=== PATIENT | male | born 1945 | race Caucasian/White ===

== ENCOUNTER 2016-11-16 10:34 | Inpatient (IN) | payer MEDICARE ==
[~2016-11-16] VITALS: Ht 175.3 cm; Wt 88.2 kg
[2016-11-21] MEDS ORDERED: LISI40TA PO (11:53)
[2016-11-21] MEDS ORDERED: METF500T4 PO (11:53)
[2016-11-21] MEDS ORDERED: ZINC220C3 PO (11:55)
[2016-11-22] MEDS ORDERED: OMEGCAP PO (16:06)
[2016-11-22] MEDS ORDERED: OMEP20TA PO (16:06)
[2016-12-07] MEDS ORDERED: INSULIN HUMAN REGULAR 1,000 UNITS/10 ML VIAL SQ PRN (05:45)
[2016-12-07] MEDS ORDERED: POVIDONE IODINE 7.5% SCRUB 118 ML BOTTLE TOPICAL SCH (05:45)
[2016-12-07] MEDS ORDERED: LACTATED RINGER'S 1000 ML IV PRN (05:45)
[2016-12-07] MEDS ORDERED: SODIUM CHLORID 0.9% 500 ML IV PRN (05:45)
[2016-12-07] MEDS ORDERED: POVIDONE IODINE 5% (ANTISEPSIS KIT) 4 APPLICATIONS EACH NARE PRN (05:45)
[2016-12-07] MEDS ORDERED: METOPROLOL TARTRATE 25 MG TAB PO PRN (05:45)
[2016-12-07] MEDS ORDERED: ceFAZolin 2 GM PREMIX 50 ML IV SCH (05:45)
[2016-12-07] MEDS ORDERED: DEXAMETHASONE SOD PHOS 20 MG/5 ML VIAL IV PRN (05:45)
[2016-12-07] MEDS ORDERED: EXPAREL PERI-ARTICULAR INJECTION (TOTAL VOL. 60 ML) P-ARTICULR SCH ×2 (05:45)
[2016-12-07] MEDS ORDERED: CHLORHEXIDINE GLUCONATE 2 % 1 PACK (2 CLOTHS) TOPICAL PRN (05:45)
[2016-12-07] MEDS ORDERED: TRANEXAMIC ACID INJ 885 MG in SODIUM CHLORIDE 0.9% INJ 100 ML IV SCH ×2 (05:45→10:00)
[2016-12-07] MEDS ORDERED: VANCOMYCIN 1000 MG/NS 250 ML (for <70 kg) IV SCH ×2 (05:45)
[2016-12-07] MEDS ORDERED: FLUO10TA PO (06:01)
[2016-12-07] MEDS ORDERED: OCUVTAB4 PO (06:02)
[2016-12-07] MEDS ORDERED: MULTTAB23 PO (06:03)
[2016-12-07] MEDS ORDERED: VITA20004 PO (06:04)
[2016-12-07 06:05] VITALS: BP 131/83; PULSE 68; RESP 16; TEMP 98.1; O2SAT 96
[2016-12-07] MEDS ORDERED: GENTAMICIN SULFATE 80 MG/2 ML VIAL ONE (06:16)
--- NOTE | 2016-12-07 06:38 | HHI.DCPOC ---
Discharge Care Plan Diagnosis: (1) Osteoarthritis of left hip (2) Status post total hip replacement, left Your Health Problems Are: Difficulty with ADL Goals to Promote Your Health * To prevent worsening of your condition and complications * To maintain your health at the optimal level Directions to Meet Your Goals Take your medications as prescribed Follow your dietary instruction Follow activity as directed Keep your appointments as scheduled Take your immunizations and boosters as scheduled If your symptoms worsen call your PCP, if no PCP go to Urgent Care Center or Emergency Room Smoking is Dangerous to Your Health. Avoid second hand smoke Call the 24-hour hour crisis hotline for domestic abuse at Kris Soni Dec 07, 2016 06:38
--- NOTE | 2016-12-07 06:39 | HHI.FF ---
Face to Face Verification Diagnosis: (1) Osteoarthritis of left hip (2) Status post total hip replacement, left Physical Therapy Gait training, Transfer training, bed to chair Hip: Total hip Right LE Weight Bearing: WB as tolerated Right LE Range of Motion: Active ROM Nursing Nursing: Jackelyn teaching, Dressing changes Dressing Changes: Daily dressing change I have seen patient Augustus Erazo on 12/07/16. My clinical findings support the need for the requested home health care services because: Limited ability to care for self High risk of falls I certify that my clinical findings support that this patient is homebound because: Post-op weakness Unsteady gait/balance Kris Soni Dec 07, 2016 06:39
[2016-12-07] MEDS ORDERED: MIDAZOLAM HCL 2 MG/2 ML VIAL ONE (06:49)
[2016-12-07] MEDS ORDERED: ACETAMINOPHEN 1000 MG/100 ML VIAL IV ONE (06:49)
[2016-12-07] MEDS ORDERED: fentaNYL CITRATE 250 MCG/5 ML AMP ONE (06:50)
[2016-12-07] MEDS ORDERED: FAMOTIDINE 20 MG/2 ML VIAL ONE (06:50)
[2016-12-07] MEDS ORDERED: COMMODE 3-IN-11 MIS (06:54)
[2016-12-07] MEDS ORDERED: WALKER WHEELS/F1 MIS (06:54)
--- NOTE | 2016-12-07 08:39 | PD.OP ---
cc: Federico Zamarripa MD Operative Report Date of Surgery: Dec 07, 2016 Preoperative Diagnosis: Left hip severe osteoarthritis Postoperative Diagnosis: Same Procedure: Left total hip arthroplasty Anesthesia: Gen. Surgeon: Federico Zamarripa Rn Cvor(s): ALEXA Owens The surgical procedure was assisted by my Advanced Registered Nurse Practitioner. My COUNSELOR AID presence was necessary throughout this case for the manipulation and positioning of the surgical extremity. My COUNSELOR AID was assisting me throughout the duration of this procedure. The skill set of an Advance Registered Nurse Practitioner was medically necessary to complete this procedure. During the surgical case, the surgical forceps fabricator was working at the back table and the Advance Registered Nurse Practitioner was directly assisting me. Operation and Findings: IMPLANT DESCRIPTION: 1. [place] Gription Cup, acetabular size 54. 2. [place] AltrX polyethylene, neutral. 4. [place] femoral stem size 12, no collar, standard offset. 5. Femoral head/neck metal, 36, +5. ESTIMATED BLOOD LOSS: 300 cc. JUSTIFICATION FOR PROCEDURE: The patient has end-stage osteoarthritis to the hip. There is an attached conservative measures pathway form in the chart that describes the nonoperative measures that were undertaken prior to consideration of surgical management. The patient understood the risks and benefits of surgical management. See my office notes for further details. PROCEDURE: The patient was brought back to the operative theatre. Adequate anesthesia was obtained. The patient received intravenous vancomycin and Ancef. The patient was carefully placed on the operative table. The lower extremity was prepped and draped in the usual sterile fashion. Fluoroscopic images were obtained. We made a standard anterior incision over the hip. We dissected through the TFL fascia, exposing the anterior capsule. Arthrotomy was performed in a T-shaped fashion. The capsule was tagged with a #2 FiberWire. End-stage arthritis was identified. Osteotomy was performed through the femoral neck exposing the acetabulum. Remnants of the labrum were resected and osteophytes were removed. We sequentially reamed the acetabulum. We trialed the hip and placed the final cup into position. This was done under fluoroscopic guidance to obtain the appropriate inclination and anteversion. A manhole cover was placed into the acetabular component. We then placed the final polyethylene into position and confirmed that it was well seated. Capsular attachments on the calcar and the inner aspect of the greater trochanter were resected. On the proximal aspect of the femur we used a rongeur , box osteotome, canal finder, sequential broaches and lateralizing rasp. We calcar planed the proximal femur. Then thoroughly irrigated the wound. We trialed the hip with the appropriate size stem. We placed the final stem in to position and trialed again. The hip was stable while it was externally rotated 70 degrees when the leg was lowered to the floor. The final head was applied, and final fluoroscopic images were obtained. The wound was thoroughly irrigated again. Interarticular injection of liposomal bupivacaine was given. The capsule was closed with #2 FiberWire and #1 Vicryl. The deep fascia was closed with a #2 Stratafix, followed by 2-0 Vicryl in the skin and víctor. Postop plan is to weight-bear as tolerated. DVT prophylaxis will be performed with Joseline, JESUS perez, early mobilization, and Lovenox followed by aspirin. Federico Zamarripa MD Dec 07, 2016 08:39
[2016-12-07] MEDS ORDERED: ENOX40P SQ (08:40)
[2016-12-07] MEDS ORDERED: ASPI325T PO (08:40)
[2016-12-07] MEDS ORDERED: NORC5TAB PO (08:40)
[2016-12-07] MEDS ORDERED: diphenhydrAMINE HCL 50 MG/ML VIAL IV PRN (08:45)
[2016-12-07] MEDS ORDERED: BISACODYL 10 MG SUPP RECTAL PRN (08:45)
[2016-12-07] MEDS ORDERED: MAGNESIUM HYDROXIDE SUSP 30 ML CUP PO PRN (08:45)
[2016-12-07] MEDS ORDERED: SODIUM CHLORIDE 0.9% FLUSH 5 ML FLUSH IVF PRN (08:45)
[2016-12-07] MEDS ORDERED: MORPHINE SULFATE 4 MG/ML INJ IV PUSH PRN (08:45)
[2016-12-07] MEDS ORDERED: ZOLPIDEM TARTRATE 5 MG TAB PO PRN (08:45)
[2016-12-07] MEDS ORDERED: NALOXONE HCL 0.4 MG/ML AMP IV PRN (08:45)
[2016-12-07] MEDS ORDERED: Post-op Orders (for Pharmacy) MISC XX ONE (08:45)
[2016-12-07] MEDS ORDERED: ALUMINUM/MAGNESIUM/SIMETH 30 ML CUP PO PRN (08:45)
[2016-12-07] MEDS ORDERED: ONDANSETRON HCL 4 MG/2 ML VIAL IVP PRN (08:45)
[2016-12-07] MEDS: FLUoxetine HCL 10 MG CAP PO SCH (09:00)
[2016-12-07] MEDS ORDERED: DO NOT ADM ANY ANTICOAGULANT DRUGS PRN (09:03)
--- NOTE | 2016-12-07 09:06 | RADRPT ---
EXAM DATE/TIME: 12/07/2016 07:13 [facility] COMPARISON: No previous studies available for comparison. INDICATIONS : Left total hip replacement. MEDICAL HISTORY : None. SURGICAL HISTORY : None. ENCOUNTER: Initial ACUITY: 1 day PAIN SCORE: Non-responsive. LOCATION: Left Hip. FINDINGS: Total hip arthroplasty is in place. The femoral and acetabular components appear intact. There are no signs of loosening or fracture. CONCLUSION: Intact total hip prosthesis for jeremy. Kameron Tamayo MD on December 07, 2016 at 8:54 Board Certified Radiologist. This report was verified electronically.
[2016-12-07] MEDS ORDERED: *morphine SULFATE 8 MG/ML PERIprocedure ONLY ONE ×3 (09:10→09:45)
[2016-12-07] MEDS: LISINOPRIL 20 MG TAB PO SCH (09:15)
[2016-12-07] MEDS: SODIUM CHLORIDE 0.9% FLUSH 5 ML FLUSH IVF SCH ×2 (09:30→21:00)
[2016-12-07] MEDS: SODIUM CHLOR 0.9% 1000 ML INJ 1,000 ML IV SCH ×2 (09:30→21:19)
--- NOTE | 2016-12-07 09:59 | RADRPT ---
EXAM DATE/TIME: 12/07/2016 09:05 [facility] COMPARISON: HIP LEFT AP ONLY WO AP PELVIS, December 07, 2016, 7:13. INDICATIONS : Post op left total hip replacement. MEDICAL HISTORY : None. SURGICAL HISTORY : None. ENCOUNTER: Subsequent ACUITY: 1 day PAIN SCORE: Non-responsive. LOCATION: Left hip FINDINGS: 3 views of the pelvis and left hip reveal a total hip arthroplasty on the left. This is in good posit ion. No fracture or dislocation. Surgical víctor overlie the hip. There is soft tissue swelling note d. Advanced osteoarthritis is seen involving the right hip. This includes subchondral geode formation and prominent osteophyte production. CONCLUSION: Total hip prosthesis on the left in good position. Advanced osteoarthritis involving the right hip. Shyam Pillai Jr., MD on December 07, 2016 at 9:56 Board Certified Radiologist. This report was verified electronically.
[2016-12-07] MEDS ORDERED: *HYDROmorphone PF 1 MG VIAL PERIprocedural Use ONLY ONE (10:22)
[2016-12-07] MEDS: metFORMIN HCL 500 MG TAB PO SCH (11:00)
[2016-12-07] MEDS ORDERED: NEOSTIGMINE 3 MG/3 ML SYR IV ONE (12:00)
[2016-12-07] MEDS ORDERED: PROPOFOL 200 MG/20 ML AMP IV ONE (12:00)
[2016-12-07] MEDS ORDERED: ONDANSETRON HCL 4 MG/2 ML VIAL IV PUSH ONE (12:00)
[2016-12-07] MEDS ORDERED: LACTATED RINGER'S 1000 ML INJ 1,000 ML IV ONE (12:00)
[2016-12-07 13:40] VITALS: O2SAT 97
[2016-12-07] MEDS: TAMSULOSIN HCL 0.4 MG CAP PO SCH (15:05)
[2016-12-07 16:00] VITALS: BP 115/82; PULSE 92; RESP 18; TEMP 96.6; O2SAT 99
[2016-12-07 17:09] LABS: BLOOD, URINE NEG (NEG); COMMENT (UR) CULT NOT INDICATED; CULTURE IF INDICATED CULT NOT INDICATED; GLUCOSE,URINE NEG (NEG); HYALINE CAST, URINE 1 /lpf (RARE); KETONE, URINE NEG (NEG); MUCUS URINE FEW /lpf (OCC); NITRITE,URINE NEG (NEG); PH, URINE 5.5 (5.0-8.5); SQUAMOUS EPITHELIAL CELL URINE <1 /hpf (0-5); URINE COLOR YELLOW (YELLW/STRAW)
--- NOTE | 2016-12-07 18:05 | PD.CONS ---
[facility] By Primary Care Physician Paul Goncalves MD Diagnoses: History of Present Illness This is a very pleasant 71 year-old male . The patient has problems with the left hip for a number of years. This problem has been resistant to conservative management in terms of both function and pain control. The patient had left total hip replacement earlier today. The patient was seen in the postoperatively recovery unit today by the undersigned. The patient is alert and oriented and denies any complaints . he was seen in the presence of his nurse . His pain is reasonably well controlled. No nausea or trouble breathing. Review of Systems Other 10 systems reviewed and otherwise negative Past Family Social History Allergies: Coded Allergies: No Known Allergies (Unverified , 12/07/16) Physical Exam Vital Signs Vital Signs Date Time Temp Pulse Resp B/P Pulse Ox O2 Delivery O2 Flow Rate FiO2 12/07/16 13:40 97 21 12/07/16 12:00 76 16 120/69 96 Nasal Cannula 2 12/07/16 11:00 92 16 120/73 96 Nasal Cannula 2 12/07/16 10:30 88 16 129/71 97 Nasal Cannula 2 12/07/16 10:00 72 16 125/68 97 Nasal Cannula 2 12/07/16 09:45 94 16 134/76 97 Nasal Cannula 2 12/07/16 09:30 90 16 113/63 97 Nasal Cannula 2 12/07/16 09:15 66 16 129/71 97 Nasal Cannula 2 12/07/16 09:02 97.3 88 16 153/83 98 Nasal Cannula 2 12/07/16 06:05 98.1 68 16 131/83 96 Physical Exam GENERAL: This is a well-nourished, well-developed patient, in no apparent distress. SKIN: No rashes, ecchymoses or lesions. Cool and dry. HEAD: Atraumatic. Normocephalic. No temporal or scalp tenderness. EYES: Pupils equal round and reactive. Extraocular motions intact. No scleral icterus. No injection or drainage. ENT: Nose without bleeding, purulent drainage or septal hematoma. Throat without erythema, tonsillar hypertrophy or exudate. Uvula midline. Airway patent. NECK: Trachea midline. No JVD or lymphadenopathy. Supple, nontender, no meningeal signs. CARDIOVASCULAR: Regular rate and rhythm without murmurs, gallops, or rubs. RESPIRATORY: Clear to auscultation. Breath sounds equal bilaterally. No wheezes , rales, or rhonchi. GASTROINTESTINAL: Abdomen soft, non-tender, nondistended. No hepato-splenomegaly , or palpable masses. No guarding. MUSCULOSKELETAL: Left lower extremity in clean dry dressings . NEUROLOGICAL: Awake and alert. Cranial nerves II through XII intact. Normal speech. Laboratory Laboratory Tests Test 12/07/16 12/07/16 06:06 16:20 Blood Type AB POSITIVE Antibody Screen NEGATIVE Blood Bank Comment Urine Color YELLOW Urine Turbidity CLEAR Urine pH 5.5 Urine Specific [place] 1.019 Urine Protein NEG Urine Glucose (UA) NEG Urine Ketones NEG Urine Occult Blood NEG Urine Nitrite NEG Urine Bilirubin NEG Urine Urobilinogen LESS THAN 2.0 Urine Leukocyte Esterase NEG Urine RBC 1 Urine WBC 1 Urine Squamous Epithelial <1 Cells Urine Hyaline Casts 1 Urine Mucus FEW Microscopic Urinalysis Comment CULT NOT INDICATED A/P Assessment and Plan Assessment End-stage left hip osteoarthritis Status post left total hip arthroplasty on 12/07/16 History of diabetes, hypertension, reflux disease Recent negative cardiac stress test by Management Routine post hip replacement protocol Pain control DVT prophylaxis Physical therapy Bowel regimen Sinus scale of insulin Accu-Cheks before meals and at bedtime Wound management per orthopedics Discussed with patient Discussed with nurse Thank you for allowing us to participate in the care of this gentleman We'll be following him along with you on daily basis while hospitalized 35 minutes Barbie Spencer MD Dec 07, 2016 18:05
[2016-12-07 19:24] VITALS: BP 126/69; PULSE 76; RESP 18; TEMP 96.5; O2SAT 98
[2016-12-07] MEDS: ACETAMINOPHEN/HYDROcodone 325 MG/5 MG TAB PO PRN (21:15)
[2016-12-07 23:17] VITALS: BP 107/61; PULSE 93; RESP 18; TEMP 98; O2SAT 95
[2016-12-08 03:26] VITALS: BP 113/68; PULSE 98; RESP 19; TEMP 98.8; O2SAT 94
[2016-12-08] MEDS: SODIUM CHLOR 0.9% 1000 ML INJ 1,000 ML IV SCH ×2 (04:36→14:36)
[2016-12-08] MEDS: ACETAMINOPHEN/HYDROcodone 325 MG/5 MG TAB PO PRN ×3 (06:08→21:18)
--- NOTE | 2016-12-08 06:56 | MB ---
cc: WARD DOAN MD DATE OF CONSULTATION 12/07/2016 REASON FOR CONSULTATION Medical management consult HISTORY OF PRESENT ILLNESS This is a 71-year-old white male who has just undergone a left total hip arthroplasty. He is currently in his room postop. Significant other is at his side. The patient is alert, oriented, up in the restroom with a walker and slightly restless having some urinary retention as well as urinary spasms. The patient does have a history of BPH that has been benign up to this point. He is voiding small amounts 2-300 x3, but continues to feel the constant urge to void. The patient was just placed on Flomax and we will monitor his urine output as well as bladder scan him until he is having no further difficulty with urinary retention, otherwise the patient is denying any chest pain, no shortness of breath. He is alert, oriented and cooperative, mildly anxious over his urinary retention. MEDICAL HISTORY 1. Degenerative disk disease 2. Depression 3. Diabetes type 2 with oral hypoglycemics 4. Hyperlipidemia 5. Hypertension 6. Former smoker. 7. Occasional alcohol intake. 8. Pyloric stenosis 9. BPH 10. Reflux GERD which is not symptomatic. SURGICAL HISTORY 1. Appendectomy ALLERGIES No known. MEDICATIONS REPORTED 1. Lisinopril 2. Lovenox 3. Prozac 4. Metformin 5. Multivitamins 6. Aspirin 7. Hydrocodone 8. Omeprazole 9. Vitamin B12 SOCIAL HISTORY The patient is and has a significant other that he lives with for the past 23 years. He does have a history of smoking in his younger years, but has not smoked in 40 years. Occasional alcohol consumption. No illicit drugs. REVIEW OF SYSTEMS Noted in the HPI, otherwise negative. The patient did have a bowel movement times two yesterday. PHYSICAL EXAM VITAL SIGNS: Temperature is 97.3, pulse 76, high noted 92, respirations 16, blood pressure 120/69, O2 sat 96 currently on 2 liters nasal cannula and/or room air. GENERAL: This is a slim, but well-nourished elderly white male who looks to be his stated age. He is answering questions appropriately. HEENT: Atraumatic, normocephalic. PERRLA at 2. Mucous membranes are moist. NECK: Supple. HEART: Sounds S1-S2, no murmurs, rubs or gallops. He has no edema. Pulses are intact. LUNGS: Essentially clear anteriorly and posteriorly with no wheezes, rales or rhonchi. ABDOMEN: Soft, nontender, nondistended. Active bowel sounds. : Clear yellow urine. Voiding multiple times anywhere from 100-300 cc x3 so far. Positive for bladder spasms MUSCULOSKELETAL: Moving his extremities with purpose and on command. Equal hand animal technician. No obvious deformities. Dressing right hip clean, dry and intact. NEUROLOGIC: Alert, oriented, answers questions appropriately. Tongue is midline. Speech is clear. PSYCHIATRIC: Appropriate mood and affect. UA is pending. ASSESSMENT/PLAN 1. Bilateral hip severe osteoarthritis 2. Degenerative disk disease, the patient is status post left total hip arthroplasty. 3. Urinary retention, rule out UTI. 4. Diabetes type 2 5. Hypertension 6. History of benign BPH 7. Urinary retention PLAN 1. Our plan is to monitor his medical management with special attention currently to his urinary retention. 2. We will monitor Accu-Chek's a.c. and h.s. with sliding scale. 3. ADA diet 4. O2 as needed 5. Trapeze set up for his mobility. 6. We have added Flomax and check a urine specimen to rule out any type of UTI. The patient has not had any problems with urinary retention before, but does have a history of benign BPH. This could be a postop complication. We will continue to monitor and place a Valente catheter only if needed. 7. Pain management and postop care per Ortho. 8. DVT prophylaxis with Lovenox. 9. PUD prophylaxis with Protonix. 10. We will order labs for in the morning and continue to monitor. Dictated by ALEXA Kearney MD NEERAJ Holland/TERESE /4:52 PM /6:36 AM
[2016-12-08] MEDS ORDERED: DEXAMETHASONE SOD PHOS 20 MG/5 ML VIAL IV ONE (07:45)
[2016-12-08 08:00] VITALS: BP 115/71; PULSE 98; RESP 18; TEMP 98.3; O2SAT 96
[2016-12-08] MEDS: TAMSULOSIN HCL 0.4 MG CAP PO SCH ×2 (08:23→21:24)
[2016-12-08] MEDS: LISINOPRIL 20 MG TAB PO SCH (08:24)
[2016-12-08] MEDS: PANTOPRAZOLE SOD 20 MG DELAYED RELEASE TAB PO SCH (08:24)
[2016-12-08] MEDS: ENOXAPARIN SODIUM 40 MG/0.4 ML SYRINGE SQ SCH (08:24)
[2016-12-08] MEDS: FLUoxetine HCL 10 MG CAP PO SCH (08:24)
[2016-12-08] MEDS: metFORMIN HCL 500 MG TAB PO SCH (08:25)
[2016-12-08] MEDS: PSYLLIUM FIBER SF/GF 6 GM POWD PKT PO SCH (08:26)
[2016-12-08] MEDS: SODIUM CHLORIDE 0.9% FLUSH 5 ML FLUSH IVF SCH ×2 (08:26→21:00)
[2016-12-08 10:43] LABS: HEMATOCRIT 33.3 % (39.0-51.0); MEAN CELL VOLUME 86.7 FL (80.0-100.0); MEAN CORPUSCULAR HEMOGLOBIN 28.8 PG (27.0-34.0); MEAN CORPUSCULAR HGB CONC 33.2 % (32.0-36.0); PLATELET COUNT 226 TH/MM3 (150-450); RED BLOOD COUNT 3.83 MIL/MM3 (4.50-5.90); RED CELL DISTRIBUTION WIDTH 13.8 % (11.6-17.2); REVIEW FLAG FINAL; WHITE BLOOD COUNT 10.5 TH/MM3 (4.0-11.0)
[2016-12-08 11:06] LABS: BICARBONATE 24.9 MEQ/L (21.0-32.0); MAGNESIUM 1.8 MG/DL (1.5-2.5); POTASSIUM 3.9 MEQ/L (3.5-5.1)
--- NOTE | 2016-12-08 11:59 | PD.ORT.PN ---
Subjective Post Op Day #: 1 Subjective Remarks The patient is resting in bed with c/o moderate left hip pain. Patient is ambulatory and voiding. Objective Vitals Vital Signs Date Time Temp Pulse Resp B/P Pulse Ox O2 Delivery O2 Flow Rate FiO2 12/08/16 08:00 98.3 98 18 115/71 96 12/08/16 03:26 98.8 98 19 113/68 94 12/07/16 23:17 98.0 93 18 107/61 95 12/07/16 22:15 18 12/07/16 19:24 96.5 76 18 126/69 98 12/07/16 16:00 96.6 92 18 115/82 99 12/07/16 13:40 97 21 12/07/16 12:00 76 16 120/69 96 Nasal Cannula 2 I/O 12/07/16 12/07/16 12/07/16 12/08/16 12/08/16 12/08/16 07:00 15:00 23:00 07:00 15:00 23:00 Intake Total 150 ml 720 ml 1156 ml Output Total 100 ml 1200 ml 350 ml Balance 50 ml -480 ml 806 ml Intake Oral 720 ml 480 ml IV Total 150 ml 676 ml Output Urine Total 100 ml 1200 ml 350 ml Bladder Scan Volume Amount 600 ml 468 ml # Bowel Movements 0 0 Result Diagram: 12/08/1692112/08/16921 Procedures Left ELPIDIO Objective Remarks The patient's dressing is changed with scant serosanguineous drainage. Incision is well approximated with surgical clips intact. No redness or s/s of infection. EHL/TA/G intact. 2+ pedal pulse. Calf is soft and nontender. + SILT. Assessment & Plan Ortho Post Op Day #: 1 Problem List: Assessment and Plan POD #1: Left ELPIDIO 1. WBAT LLE 2. Lovenox followed by ASA for DVT prophylaxis 3. Ice to the left hip PRN 4. Anticipatory discharge to SNF on Monday. Kris Soni Dec 08, 2016 11:59
[2016-12-08 12:00] VITALS: BP 114/67; PULSE 80; RESP 18; TEMP 98.6; O2SAT 95
[2016-12-08 15:42] VITALS: O2SAT 95
[2016-12-08 16:00] VITALS: BP 118/68; PULSE 87; RESP 18; TEMP 96.8; O2SAT 97
--- NOTE | 2016-12-08 18:35 | HHI.PR ---
Subjective Interval History alert, oriented, complaining of frequent urination, doing his physical therapy with reasonable pain control Complaining of some stiffness in his legs, eating well Review of Systems Constitutional Constitutional Remarks Mild left hip pain, frequent urination, 10 systems reviewed otherwise negative Vitals/Results Intake & Output 12/07/16 12/07/16 12/08/16 15:00 23:00 07:00 Intake Total 150 ml 720 ml 1156 ml Output Total 100 ml 1200 ml 350 ml Balance 50 ml -480 ml 806 ml Intake Oral 720 ml 480 ml IV Total 150 ml 676 ml Output Urine Total 100 ml 1200 ml 350 ml Bladder Scan Volume Amount 600 ml 468 ml # Bowel Movements 0 0 Vital Signs Vital Signs Date Time Temp Pulse Resp B/P Pulse Ox O2 Delivery O2 Flow Rate FiO2 12/08/16 16:00 96.8 87 18 118/68 97 12/08/16 15:42 95 21 12/08/16 12:00 98.6 80 18 114/67 95 12/08/16 08:00 98.3 98 18 115/71 96 12/08/16 03:26 98.8 98 19 113/68 94 12/07/16 23:17 98.0 93 18 107/61 95 12/07/16 22:15 18 12/07/16 19:24 96.5 76 18 126/69 98 CBC/BMP: 12/08/16 0922 12/08/16 0922 Lab Results Laboratory Tests Test 12/08/16 09:22 White Blood Count 10.5 TH/MM3 Red Blood Count 3.83 MIL/MM3 Hemoglobin 11.1 GM/DL Hematocrit 33.3 % Mean Corpuscular Volume 86.7 FL Mean Corpuscular Hemoglobin 28.8 PG Mean Corpuscular Hemoglobin 33.2 % Concent Red Cell Distribution Width 13.8 % Platelet Count 226 TH/MM3 Mean Platelet Volume 8.3 FL Sodium Level 137 MEQ/L Potassium Level 3.9 MEQ/L Chloride Level 104 MEQ/L Carbon Dioxide Level 24.9 MEQ/L Anion Gap 8 MEQ/L Blood Urea Nitrogen 21 MG/DL Creatinine 1.14 MG/DL Estimat Glomerular Filtration 64 ML/MIN Rate Random Glucose 210 MG/DL Calcium Level 8.8 MG/DL Phosphorus Level 2.4 MG/DL Magnesium Level 1.8 MG/DL Physical Exam General General Appearance: Well Developed, Anxious Eyes Eye Exam: Pupils Reactive Ears & Nose Ears & Nose Exam: Nasal Mucosa [place] Throat Throat Exam: Oral Mucosa [place] & Moist Neck Neck Exam: Trachea Midline Pulmonary Resp Exam: Breath Sounds Equal Cardiology CV Exam: Normal Sinus Rhythm, Good Perfusion Gastrointestinal/Abdomen GI Exam: Non-Tender, Bowel Sounds Present Musculoskeletal MS Exam: Normal Tone MS Remarks Left lower extremity in clean dry dressing, Integumentary Skin Exam: Warm, Dry Extremeties Extremities Exam: Pedal Pulses Palpable Neurologic Neuro Exam: Awake, Oriented, Speech Clear Psychiatric Psych Exam: Appropriate Responses VTE Prophylaxis VTE Prophylaxis Meds: Lovenox Assessment/Plan Assessment/Plan Assessment Frequent urination End-stage left hip osteoarthritis Status post left total hip arthroplasty on 12/07/16 History of diabetes, hypertension, reflux disease Recent negative cardiac stress test by Management Urinalysis Rule out UTI Flomax Routine post hip replacement protocol Pain control DVT prophylaxis Physical therapy Bowel regimen Sinus scale of insulin Follow hemoglobin, keep above 8 Accu-Cheks before meals and at bedtime Wound management per orthopedics Discussed with patient Discussed with nurse Thank you for allowing us to participate in the care of this gentleman We'll be following him along with you on daily basis while hospitalized 35 minutes Barbie Spencer MD Dec 08, 2016 18:35
[2016-12-08 20:15] VITALS: BP 118/69; PULSE 95; RESP 18; TEMP 97.7; O2SAT 96
[2016-12-08] MEDS: DOCUSATE SODIUM 100 MG CAP PO SCH (21:17)
[2016-12-08] MEDS: MULTIVITAMINS/MINERALS THERAPEUTIC TAB PO SCH (21:17)
[2016-12-09 00:10] VITALS: BP 111/71; PULSE 80; RESP 18; TEMP 99; O2SAT 96
[2016-12-09] MEDS: SODIUM CHLOR 0.9% 1000 ML INJ 1,000 ML IV SCH ×4 (00:36→20:27)
[2016-12-09 04:11] VITALS: BP 132/73; PULSE 83; RESP 18; TEMP 97.4; O2SAT 97
[2016-12-09 07:31] LABS: HEMATOCRIT 31.9 % (39.0-51.0); MEAN CORPUSCULAR HEMOGLOBIN 28.8 PG (27.0-34.0); MEAN CORPUSCULAR HGB CONC 33.5 % (32.0-36.0); PLATELET COUNT 217 TH/MM3 (150-450); RED CELL DISTRIBUTION WIDTH 13.8 % (11.6-17.2); REVIEW FLAG FINAL; WHITE BLOOD COUNT 10.6 TH/MM3 (4.0-11.0)
[2016-12-09 07:46] LABS: MAGNESIUM 2.1 MG/DL (1.5-2.5); POTASSIUM 4.1 MEQ/L (3.5-5.1)
[2016-12-09 08:00] VITALS: BP 122/66; PULSE 79; RESP 18; TEMP 98; O2SAT 98
[2016-12-09] MEDS: FLUoxetine HCL 10 MG CAP PO SCH (08:09)
[2016-12-09] MEDS: ENOXAPARIN SODIUM 40 MG/0.4 ML SYRINGE SQ SCH (08:09)
[2016-12-09] MEDS: PANTOPRAZOLE SOD 20 MG DELAYED RELEASE TAB PO SCH (08:10)
[2016-12-09] MEDS: metFORMIN HCL 500 MG TAB PO SCH (08:10)
[2016-12-09] MEDS: LISINOPRIL 20 MG TAB PO SCH (08:11)
[2016-12-09] MEDS: DOCUSATE SODIUM 100 MG CAP PO SCH ×2 (08:12→20:31)
[2016-12-09] MEDS: ACETAMINOPHEN/HYDROcodone 325 MG/5 MG TAB PO PRN ×2 (08:12→17:19)
[2016-12-09] MEDS: MULTIVITAMINS/MINERALS THERAPEUTIC TAB PO SCH ×2 (08:13→20:31)
[2016-12-09] MEDS: PSYLLIUM FIBER SF/GF 6 GM POWD PKT PO SCH (08:13)
[2016-12-09] MEDS: TAMSULOSIN HCL 0.4 MG CAP PO SCH ×2 (08:13→20:31)
[2016-12-09] MEDS: SODIUM CHLORIDE 0.9% FLUSH 5 ML FLUSH IVF SCH ×2 (09:00→20:32)
--- NOTE | 2016-12-09 11:23 | HHI.PR ---
Subjective Interval History Alert, oriented, complaining of dysuria, very small amounts of frequent urine with some burning, no fever chills or diaphoresis, Review of Systems Constitutional Constitutional Remarks Mild left lower extremity stiffness, frequent urination, 10 systems reviewed otherwise negative Vitals/Results Intake & Output 12/08/16 12/08/16 12/09/16 15:00 23:00 07:00 Intake Total 1200 ml 240 ml 240 ml Output Total 400 ml Balance 1200 ml 240 ml -160 ml Intake Oral 1200 ml 240 ml 240 ml Output Urine Total 400 ml # Voids 4 3 4 # Bowel Movements 0 0 0 Vital Signs Vital Signs Date Time Temp Pulse Resp B/P Pulse Ox O2 Delivery O2 Flow Rate FiO2 12/09/16 10:28 16 12/09/16 08:00 98.0 79 18 122/66 98 12/09/16 04:11 97.4 83 18 132/73 97 12/09/16 00:10 99.0 80 18 111/71 96 12/08/16 20:15 97.7 95 18 118/69 96 12/08/16 16:00 96.8 87 18 118/68 97 12/08/16 15:42 95 21 12/08/16 12:00 98.6 80 18 114/67 95 CBC/BMP: 12/09/16 0635 12/09/16 0635 Lab Results Laboratory Tests Test 12/09/16 06:35 White Blood Count 10.6 TH/MM3 Red Blood Count 3.70 MIL/MM3 Hemoglobin 10.7 GM/DL Hematocrit 31.9 % Mean Corpuscular Volume 86.0 FL Mean Corpuscular Hemoglobin 28.8 PG Mean Corpuscular Hemoglobin 33.5 % Concent Red Cell Distribution Width 13.8 % Platelet Count 217 TH/MM3 Mean Platelet Volume 8.0 FL Sodium Level 142 MEQ/L Potassium Level 4.1 MEQ/L Chloride Level 106 MEQ/L Carbon Dioxide Level 29.0 MEQ/L Anion Gap 7 MEQ/L Blood Urea Nitrogen 21 MG/DL Creatinine 0.97 MG/DL Estimat Glomerular Filtration 77 ML/MIN Rate Random Glucose 124 MG/DL Calcium Level 8.8 MG/DL Phosphorus Level 2.7 MG/DL Magnesium Level 2.1 MG/DL Physical Exam General General Appearance: Well Developed, Anxious Eyes Eye Exam: Pupils Reactive Ears & Nose Ears & Nose Exam: Nasal Mucosa [place] Throat Throat Exam: Oral Mucosa [place] & Moist Neck Neck Exam: Trachea Midline Pulmonary Resp Exam: Breath Sounds Equal Cardiology CV Exam: Normal Sinus Rhythm, Good Perfusion Gastrointestinal/Abdomen GI Exam: Non-Tender, Bowel Sounds Present Musculoskeletal MS Exam: Normal Tone MS Remarks Left lower extremity in clean dry dressing, Integumentary Skin Exam: Warm, Dry Extremeties Extremities Exam: Pedal Pulses Palpable Neurologic Neuro Exam: Awake, Oriented, Speech Clear Psychiatric Psych Exam: Appropriate Responses VTE Prophylaxis VTE Prophylaxis Meds: Lovenox Assessment/Plan Assessment/Plan Assessment Frequent urination Dysuria End-stage left hip osteoarthritis Status post left total hip arthroplasty on 12/07/16 History of diabetes, hypertension, reflux disease Recent negative cardiac stress test by Management Follow Urinalysis Rule out UTI Flomax, twice a day Routine post hip replacement protocol Pain control DVT prophylaxis Physical therapy Bowel regimen Sinus scale of insulin Follow hemoglobin, keep above 8 Accu-Cheks before meals and at bedtime Wound management per orthopedics Discussed with patient Discussed with nurse Thank you for allowing us to participate in the care of this gentleman We'll be following him along with you on daily basis while hospitalized 35 minutes Barbie Spencer MD Dec 09, 2016 11:23
[2016-12-09 12:00] VITALS: BP 109/67; PULSE 77; RESP 18; TEMP 97.6; O2SAT 98
[2016-12-09 14:15] LABS: BLOOD, URINE NEG (NEG); COMMENT (UR) CULT NOT INDICATED; CULTURE IF INDICATED CULT NOT INDICATED; GLUCOSE,URINE NEG (NEG); HYALINE CAST, URINE 1 /lpf (RARE); KETONE, URINE NEG (NEG); MUCUS URINE FEW /lpf (OCC); NITRITE,URINE NEG (NEG); PH, URINE 5.5 (5.0-8.5); SQUAMOUS EPITHELIAL CELL URINE <1 /hpf (0-5); URINE COLOR YELLOW (YELLW/STRAW)
[2016-12-09 16:00] VITALS: BP 110/69; PULSE 83; RESP 18; TEMP 98.2; O2SAT 96
--- NOTE | 2016-12-09 16:13 | PD.ORT.PN ---
Subjective Post Op Day #: 2 Subjective Remarks The patient is OOB ambulating from bathroom. Patient states his pain is better today. Objective Vitals Vital Signs Date Time Temp Pulse Resp B/P Pulse Ox O2 Delivery O2 Flow Rate FiO2 12/09/16 12:00 97.6 77 18 109/67 98 12/09/16 10:28 16 12/09/16 08:00 98.0 79 18 122/66 98 12/09/16 04:11 97.4 83 18 132/73 97 12/09/16 00:10 99.0 80 18 111/71 96 12/08/16 20:15 97.7 95 18 118/69 96 I/O 12/08/16 12/08/16 12/08/16 12/09/16 12/09/16 12/09/16 06:59 14:59 22:59 06:59 14:59 22:59 Intake Total 1156 ml 1200 ml 240 ml 240 ml Output Total 350 ml 400 ml Balance 806 ml 1200 ml 240 ml -160 ml Intake Oral 480 ml 1200 ml 240 ml 240 ml IV Total 676 ml Output Urine Total 350 ml 400 ml Bladder Scan Volume Amount 468 ml # Voids 4 3 4 # Bowel Movements 0 0 0 0 Result Diagram: 12/09/16 0635 12/09/16 0635 Procedures Left ELPIDIO Objective Remarks The patient's dressing is C/D/I. EHL/TA/G intact. 2+ pedal pulse. Calf is soft and nontender. + SILT. Assessment & Plan Ortho Post Op Day #: 2 Problem List: Assessment and Plan POD #2: Left ELPIDIO 1. WBAT LLE 2. Lovenox followed by ASA for DVT prophylaxis 3. Ice to the left hip PRN 4. Anticipatory discharge to SNF ([facility]) on Monday. 5. Patient will f/u with Dr. Zamarripa as previously scheduled. Kris oSni Dec 09, 2016 16:13
[2016-12-09 20:20] VITALS: BP 107/65; PULSE 90; RESP 18; TEMP 98.8; O2SAT 96
[2016-12-10 00:20] VITALS: BP 101/72; PULSE 83; RESP 18; TEMP 98; O2SAT 96
[2016-12-10] MEDS: ACETAMINOPHEN/HYDROcodone 325 MG/5 MG TAB PO PRN (03:09)
[2016-12-10 06:44] LABS: HEMATOCRIT 34.7 % (39.0-51.0); MEAN CELL VOLUME 87.9 FL (80.0-100.0); MEAN CORPUSCULAR HEMOGLOBIN 29.1 PG (27.0-34.0); MEAN CORPUSCULAR HGB CONC 33.1 % (32.0-36.0); PLATELET COUNT 222 TH/MM3 (150-450); RED BLOOD COUNT 3.95 MIL/MM3 (4.50-5.90); RED CELL DISTRIBUTION WIDTH 13.6 % (11.6-17.2); REVIEW FLAG FINAL; WHITE BLOOD COUNT 8.7 TH/MM3 (4.0-11.0)
[2016-12-10 08:00] VITALS: BP 109/63; PULSE 70; RESP 16; TEMP 97.8; O2SAT 98
[2016-12-10] MEDS: SODIUM CHLORIDE 0.9% FLUSH 5 ML FLUSH IVF SCH (09:00)
[2016-12-10] MEDS: LISINOPRIL 20 MG TAB PO SCH (09:00)
[2016-12-10] MEDS: FLUoxetine HCL 10 MG CAP PO SCH (09:00)
--- NOTE | 2016-12-10 09:29 | PD.ORT.PN ---
Subjective Post Op Day #: 3 Subjective Remarks Pt sitting upright eating breakfast, already walked with PT. Has not had BM. Ready for d/c today to rehab Objective Vitals Vital Signs Date Time Temp Pulse Resp B/P Pulse Ox O2 Delivery O2 Flow Rate FiO2 12/10/16 08:00 97.8 70 16 109/63 98 12/10/16 00:20 98.0 83 18 101/72 96 12/09/16 20:20 98.8 90 18 107/65 96 12/09/16 16:00 98.2 83 18 110/69 96 12/09/16 12:00 97.6 77 18 109/67 98 12/09/16 10:28 16 I/O 12/09/16 12/09/16 12/09/16 12/10/16 12/10/16 12/10/16 07:00 15:00 23:00 07:00 15:00 23:00 Intake Total 240 ml 960 ml 360 ml 240 ml Output Total 400 ml Balance -160 ml 960 ml 360 ml 240 ml Intake Oral 240 ml 960 ml 360 ml 240 ml Output Urine Total 400 ml # Voids 4 5 1 4 # Bowel Movements 0 0 0 0 Result Diagram: 12/10/16 0616 12/09/16 0635 Imaging Last Impressions Hip and Pelvis X-Ray 12/07/16 0836 Signed Impressions: Service Date/Time: Wednesday, December 07, 2016 09:05 - CONCLUSION: Total hip prosthesis on the left in good position. Advanced osteoarthritis involving the right hip. Shyam Pillai Jr., MD Hip X-Ray 12/07/16 0000 Signed Impressions: Service Date/Time: Wednesday, December 07, 2016 07:13 - CONCLUSION: Intact total hip prosthesis for technique. K. Jesu Tamayo MD Procedures Left ELPIDIO Objective Remarks The patient's dressing is C/D/I. EHL/TA/G intact. 2+ pedal pulse. Calf is soft and nontender. + SILT. Assessment & Plan Ortho Post Op Day #: 3 Problem List: (1) Status post total hip replacement, left (2) Osteoarthritis of left hip Assessment and Plan POD #3: Left ELPIDIO 1. WBAT LLE 2. Lovenox followed by ASA for DVT prophylaxis 3. Ice to the left hip PRN 4. Clear for discharge from an orthopedic standpoint. Anticipatory discharge to SNF ([facility]) today. 5. Patient will f/u with Dr. Zamarripa as previously scheduled. 6. Senokot added for bowel regimen. Elyssa Aguilera Dec 10, 2016 09:29
[2016-12-10] MEDS: MULTIVITAMINS/MINERALS THERAPEUTIC TAB PO SCH (09:52)
[2016-12-10] MEDS: PANTOPRAZOLE SOD 20 MG DELAYED RELEASE TAB PO SCH (09:52)
[2016-12-10] MEDS: DOCUSATE SODIUM 100 MG CAP PO SCH (09:52)
[2016-12-10] MEDS: metFORMIN HCL 500 MG TAB PO SCH (09:52)
[2016-12-10] MEDS: ENOXAPARIN SODIUM 40 MG/0.4 ML SYRINGE SQ SCH (09:53)
[2016-12-10] MEDS: PSYLLIUM FIBER SF/GF 6 GM POWD PKT PO SCH (09:53)
[2016-12-10] MEDS: TAMSULOSIN HCL 0.4 MG CAP PO SCH (09:53)
[2016-12-10] MEDS ORDERED: SENNOSIDES 8.6 MG TAB PO SCH (10:00)
[2016-12-10 12:00] VITALS: BP 117/72; PULSE 87; RESP 16; TEMP 97.4; O2SAT 97
--- NOTE | 2016-12-10 18:53 | HHI.PR ---
Subjective Interval History Alert, oriented, denies complaints, waiting to be discharged, Review of Systems Constitutional Constitutional Remarks 10 systems reviewed otherwise negative Vitals/Results Intake & Output 12/09/16 12/09/16 12/10/16 15:00 23:00 07:00 Intake Total 960 ml 360 ml 240 ml Balance 960 ml 360 ml 240 ml Intake Oral 960 ml 360 ml 240 ml # Voids 5 1 4 # Bowel Movements 0 0 0 Vital Signs Vital Signs Date Time Temp Pulse Resp B/P Pulse Ox O2 Delivery O2 Flow Rate FiO2 12/10/16 12:00 97.4 87 16 117/72 97 12/10/16 08:00 97.8 70 16 109/63 98 12/10/16 00:20 98.0 83 18 101/72 96 12/09/16 20:20 98.8 90 18 107/65 96 CBC/BMP: 12/10/16 0616 12/09/16 0635 Lab Results Laboratory Tests Test 12/10/16 06:16 White Blood Count 8.7 TH/MM3 Red Blood Count 3.95 MIL/MM3 Hemoglobin 11.5 GM/DL Hematocrit 34.7 % Mean Corpuscular Volume 87.9 FL Mean Corpuscular Hemoglobin 29.1 PG Mean Corpuscular Hemoglobin 33.1 % Concent Red Cell Distribution Width 13.6 % Platelet Count 222 TH/MM3 Mean Platelet Volume 7.7 FL Physical Exam General General Appearance: Well Developed, Anxious Eyes Eye Exam: Pupils Reactive Ears & Nose Ears & Nose Exam: Nasal Mucosa [place] Throat Throat Exam: Oral Mucosa [place] & Moist Neck Neck Exam: Trachea Midline Pulmonary Resp Exam: Breath Sounds Equal Cardiology CV Exam: Normal Sinus Rhythm, Good Perfusion Gastrointestinal/Abdomen GI Exam: Non-Tender, Bowel Sounds Present Musculoskeletal MS Exam: Normal Tone MS Remarks Left lower extremity in clean dry dressing, Integumentary Skin Exam: Warm, Dry Extremeties Extremities Exam: Pedal Pulses Palpable Neurologic Neuro Exam: Awake, Oriented, Speech Clear Psychiatric Psych Exam: Appropriate Responses VTE Prophylaxis VTE Prophylaxis Meds: Lovenox Assessment/Plan Assessment/Plan Assessment Frequent urination, improved Dysuria, improved End-stage left hip osteoarthritis Status post left total hip arthroplasty on 12/07/16 History of diabetes, hypertension, reflux disease Recent negative cardiac stress test by Management Flomax, twice a day Routine post hip replacement protocol Pain control DVT prophylaxis Physical therapy Bowel regimen Wound management per orthopedics Discussed with patient Discussed with nurse Thank you for allowing us to participate in the care of this gentleman 35 minutes Barbie Spencer MD Dec 10, 2016 18:53
--- NOTE | 2016-12-10 21:29 | HHI.DS ---
Discharge Summary Admission Date Dec 07, 2016 at 05:10 Discharge Date: Dec 10, 2016 Admitting Diagnosis OA of the left hip Status post total hip replacement, left Diagnosis: (1) Status post total hip replacement, left Diagnosis: Principal (2) Osteoarthritis of left hip Diagnosis: Principal Procedures Left ELPIDIO Brief History This is a 71 year old male patient with severe OA of the left hip CBC/BMP: 12/10/16 0616 12/09/16 0635 Significant Findings Laboratory Tests Test 12/08/16 12/09/16 12/09/16 12/10/16 09:22 06:35 13:33 06:16 Red Blood Count 3.83 MIL/MM3 3.70 MIL/MM3 3.95 MIL/MM3 (4.50-5.90) (4.50-5.90) (4.50-5.90) Hemoglobin 11.1 GM/DL 10.7 GM/DL 11.5 GM/DL (13.0-17.0) (13.0-17.0) (13.0-17.0) Hematocrit 33.3 % 31.9 % 34.7 % (39.0-51.0) (39.0-51.0) (39.0-51.0) Blood Urea Nitrogen 21 MG/DL (7-18) 21 MG/DL (7-18) Estimat Glomerular Filtration 64 ML/MIN (>89) 77 ML/MIN (>89) Rate Random Glucose 210 MG/DL 124 MG/DL (74-106) (74-106) Phosphorus Level 2.4 MG/DL (2.5-4.9) Urine Mucus FEW /lpf (OCC) PE at Discharge The patient's dressing is C/D/I. EHL/TA/G intact. 2+ pedal pulse. Calf is soft and nontender. + SILT. Hospital Course The patient was admitted to the hospital for severe OA of the left hip to have a left ELPIDIO. The patient's surgery went well without complication. The patient is WBAT. The patient is on a diabetic diet. The patient was placed on Lovenox followed by ASA for DVT prophylaxis. The patient was discharged today to the [facility] and will follow up in the office as scheduled with Dr. Zamarripa. Pt Condition on Discharge: Stable Discharge Disposition: Discharge to SNF Discharge Instructions Diet Instructions: Diabetic Diet Activities You Can Perform: Weight Bearing as Martín Activities to Avoid: Strenuous Activity Follow up Referrals: Orthopedics with Federico Zamarripa MD SNF/GROUP HOME/HH with [facility] New Medications: Aspirin (Aspirin) 325 Mg Tab 325 MG PO DAILY Start Aspirin after Lovenox is completed. Prevent Blood Clot # 30 Ref 0 TAB Commode 3-in-1 (Commode 3-in-1) 1 Mis Mis 1 EA .ROUTE DIRECTED #1 Ref 0 EA Enoxaparin Inj (Lovenox Inj) 40 Mg/0.4 Ml Syr 40 MG SQ DAILY Start Aspirin after Lovenox is completed. Blood Clot Prevention # 10 Ref 0 SYRINGE Hydrocodone-Acetaminophen ([place]) 5-325 mg Tab 1-2 TAB PO Q4H PRN PAIN #60 Ref 0 TAB Walker with Front Wheels (Walker with Front Wheels) 1 Mis Mis 1 EA .ROUTE DIRECTED #1 Ref 0 EA Continued Medications: Cyanocobalamin ER (Vitamin B-12 ER) 2,000 Mcg Tab 2500 MCG PO DAILY Nutritional Supplement #1 Ref 0 BOTTLE Fluoxetine (Fluoxetine) 10 Mg Tab 10 MG PO DAILY #30 Ref 0 TAB Lisinopril (Lisinopril) 40 Mg Tab 40 MG PO DAILY Blood Pressure Management #30 Ref 0 TAB Metformin ER (Metformin ER) 500 Mg Marlin 500 MG PO DAILY With evening meal Blood Sugar Management Ref 0 TAB Multiple Vitamins W/ Minerals (Preservision Areds) 1 Tab 3 TAB PO DAILY Nutritional Supplement Ref 0 TAB Multiple Vitamins W/ Minerals (Multi For Him 50+) 1 Tab Tab 1 TAB PO DAILY Omeprazole (Omeprazole) 20 Mg Tab 20 MG PO DAILY #30 Ref 0 TAB Kris Soni Dec 10, 2016 21:29
== END 2016-12-10 14:59 | DRG 470 ==
LOC: HSDI 12-07 05:10 → EDUNIT# 12-07 07:00 → N06B 12-07 12:40
PROVIDERS: ADMIT Orthopaedic Surgery; ATTEND Orthopaedic Surgery
PROC: 0SRB02A Replacement of Left Hip Joint with Metal on Polyethylene Synthetic Substitute, Uncemented, Open Approach (ICD-10-PCS; principal; 2016-12-07 06:49)
DX: M16.12 Unilateral primary osteoarthritis, left hip (principal); E11.9 Type 2 diabetes mellitus without complications; I10 Essential (primary) hypertension; K21.9 Gastro-esophageal reflux disease without esophagitis; E78.5 Hyperlipidemia, unspecified; N40.1 Benign prostatic hyperplasia with lower urinary tract symptoms; R35.0 Frequency of micturition; R30.0 Dysuria; R33.9 Retention of urine, unspecified; Z79.84 Long term (current) use of oral hypoglycemic drugs; Z87.891 Personal history of nicotine dependence
CPT/HCPCS: 73501; 73502; 76000; 80048; 81001; 82948; 83735; 84100; 85027; 86850; 86900; 86901; 94150; C1776; C9290; J0131; J0690; J1100; J1170; J1580; J1650; J2250; J2270; J2405; J2710; J3010; J3370; J7030; J7050; J7120

== ENCOUNTER → 2016-11-21 | Outpatient (CLI) | payer MEDICARE ==
[~2016-11-21] MED LIST: ASPI325T PO; ENOX40P SQ; FLUO10TA PO; LISI40TA PO; METF500T4 PO; MULTTAB23 PO; NORC5TAB PO; OCUVTAB4 PO; OMEGCAP PO; OMEP20TA PO; VITA20004 PO; ZINC220C3 PO
[2016-11-21 12:26] LABS: APTT (PATIENT) 25.6 SEC (24.3-30.1); AUTOMATED NEUTROPHIL # 4.4 TH/MM3 (1.8-7.7); BASOPHIL # 0.1 TH/MM3 (0-0.2); EOSINOPHIL # 0.3 TH/MM3 (0-0.4); EOSINOPHIL % 4.7 % (0.0-4.0); HEMATOCRIT 42.9 % (39.0-51.0); HEMO FLAGS DIFF FINAL; INTERNATIONAL NORMALIZED RATIO 0.9 RATIO; LYMPH % 19.4 % (9.0-44.0); LYMPHOCYTE # 1.3 TH/MM3 (1.0-4.8); MEAN CORPUSCULAR HGB CONC 33.8 % (32.0-36.0); MONO % 10.8 % (0.0-8.0); NEUT % 64.1 % (16.0-70.0); PLATELET COUNT 285 TH/MM3 (150-450); PROTHROMBIN TIME - PATIENT 10.3 SEC (9.8-11.6); RED BLOOD COUNT 4.99 MIL/MM3 (4.50-5.90); RED CELL DISTRIBUTION WIDTH 13.6 % (11.6-17.2); WHITE BLOOD COUNT 6.9 TH/MM3 (4.0-11.0)
--- NOTE | 2016-11-21 12:31 | RADRPT ---
EXAM DATE/TIME: 11/21/2016 12:24 [facility] COMPARISON: No previous studies available for comparison. INDICATIONS : Evaluate for pneumonia, pneumothorax and communicable diseases. Pre-op hip surgery MEDICAL HISTORY : None. SURGICAL HISTORY : None. ENCOUNTER: Initial ACUITY: 1 day PAIN SCORE: 0/10 LOCATION: chest FINDINGS: PA and lateral views of the chest demonstrate a normal-sized cardiac silhouette. There is no effusion , consolidation, or pneumothorax. The bones and soft tissues demonstrate no acute abnormality. There are mild degenerative changes of the thoracic spine. CONCLUSION: No acute cardiopulmonary abnormality is identified. Maykel Martini MD on November 21, 2016 at 12:27 Board Certified Radiologist. This report was verified electronically.
[2016-11-21 12:41] LABS: WESTERGREN SEDIMENTATION RATE 3 mm/hr (0-20)
[2016-11-21 12:47] LABS: ANION GAP 7 MEQ/L (5-15); AST (GOT) 15 U/L (15-37); BICARBONATE 28.8 MEQ/L (21.0-32.0); BLOOD UREA NITROGEN 14 MG/DL (7-18); CHLORIDE 107 MEQ/L (98-107); GLOMERULAR FILTRATION RATE 61 ML/MIN (>89); GLUCOSE,FASTING 128 MG/DL (74-99); POTASSIUM 4.2 MEQ/L (3.5-5.1); SODIUM (NA) 143 MEQ/L (136-145)
[2016-11-21 12:50] LABS: ALKALINE PHOSPHATASE 52 U/L (45-117); ALT (GPT) 26 U/L (12-78); TOTAL BILIRUBIN ADULT 0.5 MG/DL (0.2-1.0)
[2016-11-21 13:34] LABS: BLOOD, URINE NEG (NEG); COMMENT (UR) CULT NOT INDICATED; CULTURE IF INDICATED CULT NOT INDICATED; GLUCOSE,URINE NEG (NEG); HYALINE CAST, URINE 7 /lpf (RARE); KETONE, URINE NEG (NEG); MUCUS URINE FEW /lpf (OCC); NITRITE,URINE NEG (NEG); URINE COLOR YELLOW (YELLW/STRAW)
--- NOTE | 2016-11-22 16:27 | EKG ---
Date Performed: 11/21/2016 Time Performed: 11:41:12 PTAGE: 71 years EKG: Sinus rhythm ST ELEVATION ANTERIORLY. MORPHOLOGIES CONSISTENT WITH REPOLARIZATION ABNORMALITY. INJURY PATTERN LES S LIKELY NO PREVIOUS TRACING DOCTOR: Matias Pittman Interpretating Date/Time 11/22/2016 16:25:56
== END ==
LOC: CPRE 11:14
PROVIDERS: ATTEND Orthopaedic Surgery
DX: Z01.812 Encounter for preprocedural laboratory examination (principal); Z01.811 Encounter for preprocedural respiratory examination; Z01.810 Encounter for preprocedural cardiovascular examination; M16.12 Unilateral primary osteoarthritis, left hip; M79.609 Pain in unspecified limb; M25.50 Pain in unspecified joint
CPT/HCPCS: 36415; 71020; 80053; 81001; 85025; 85610; 85652; 85730; 93005

== ENCOUNTER → 2017-04-11 | Outpatient (CLI) | payer MEDICARE ==
[~2017-04-11] MED LIST changes: +ASPI-146 PO; +ASPI-183 PO; -ASPI325T PO; +COMMODE 3-IN-11 MIS; +ENOX40IN SQ; -OMEGCAP PO; -OMEP20TA PO; +OMEP20TA93 PO; +WALKER WHEELS/F1 MIS; -ZINC220C3 PO
[2017-04-11 11:37] LABS: AUTOMATED NEUTROPHIL # 4.2 TH/MM3 (1.8-7.7); BASOPHIL # 0.1 TH/MM3 (0-0.2); BASOPHIL % 0.9 % (0.0-2.0); EOSINOPHIL # 0.3 TH/MM3 (0-0.4); EOSINOPHIL % 4.4 % (0.0-4.0); HEMATOCRIT 43.7 % (39.0-51.0); HEMO FLAGS DIFF FINAL; LYMPH % 22.1 % (9.0-44.0); LYMPHOCYTE # 1.5 TH/MM3 (1.0-4.8); MEAN CELL VOLUME 85.5 FL (80.0-100.0); MEAN CORPUSCULAR HEMOGLOBIN 28.5 PG (27.0-34.0); MEAN CORPUSCULAR HGB CONC 33.3 % (32.0-36.0); NEUT % 62.6 % (16.0-70.0); PLATELET COUNT 261 TH/MM3 (150-450); RED CELL DISTRIBUTION WIDTH 14.3 % (11.6-17.2); WHITE BLOOD COUNT 6.6 TH/MM3 (4.0-11.0)
[2017-04-11 11:38] LABS: APTT (PATIENT) 26.6 SEC (24.3-30.1); INTERNATIONAL NORMALIZED RATIO 0.9 RATIO; PROTHROMBIN TIME - PATIENT 10.4 SEC (9.8-11.6)
[2017-04-11 11:43] LABS: WESTERGREN SEDIMENTATION RATE 4 mm/hr (0-20)
[2017-04-11 11:54] LABS: ALT (GPT) 24 U/L (12-78); ANION GAP 8 MEQ/L (5-15); AST (GOT) 13 U/L (15-37); BLOOD UREA NITROGEN 16 MG/DL (7-18); CHLORIDE 106 MEQ/L (98-107); GLOMERULAR FILTRATION RATE 68 ML/MIN (>89); GLUCOSE,FASTING 154 MG/DL (74-99); POTASSIUM 4.3 MEQ/L (3.5-5.1); SODIUM (NA) 141 MEQ/L (136-145)
[2017-04-11 11:55] LABS: ALKALINE PHOSPHATASE 62 U/L (45-117); TOTAL BILIRUBIN ADULT 0.4 MG/DL (0.2-1.0)
[2017-04-11 12:05] LABS: BLOOD, URINE SMALL (NEG); COMMENT (UR) CULT NOT INDICATED; CULTURE IF INDICATED CULT NOT INDICATED; GLUCOSE,URINE NEG (NEG); KETONE, URINE NEG (NEG); NITRITE,URINE NEG (NEG); URINE COLOR YELLOW (YELLW/STRAW)
--- NOTE | 2017-04-11 12:18 | RADRPT ---
EXAM DATE/TIME: 04/11/2017 11:44 [facility] COMPARISON: CHEST PA & LAT, November 21, 2016, 12:24. INDICATIONS : Evaluate for pneumonia, pneumothorax, or communicable disease. Pre op for Right total hip replacement . MEDICAL HISTORY : Hypertension. Gastroesophageal reflux disease. Osteoarthritis. Diabetic. SURGICAL HISTORY : Appendectomy. Left total hip replacement. ENCOUNTER: Initial ACUITY: 1 day PAIN SCORE: 0/10 LOCATION: chest FINDINGS: PA and lateral views of the chest demonstrate the lungs to be symmetrically aerated without evidence of mass, infiltrate or effusion. The cardiomediastinal contours are unremarkable. Osseous structure s are intact. CONCLUSION: No acute disease. Michael Frazier MD on April 11, 2017 at 12:17 Board Certified Radiologist. This report was verified electronically.
--- NOTE | 2017-04-11 21:19 | EKG ---
Date Performed: 04/11/2017 Time Performed: 10:51:07 PTAGE: 71 years EKG: Sinus rhythm NORMAL ECG PREVIOUS TRACING : 11/21/2016 11.41 Compared to prior tracing no significant change DOCTOR: Debar Thomas Interpretating Date/Time 04/11/2017 21:19:05
== END ==
LOC: CPRE 10:27
PROVIDERS: ATTEND Orthopaedic Surgery
DX: Z01.810 Encounter for preprocedural cardiovascular examination (principal); Z01.811 Encounter for preprocedural respiratory examination; Z01.812 Encounter for preprocedural laboratory examination; M79.609 Pain in unspecified limb; M25.50 Pain in unspecified joint; M16.11 Unilateral primary osteoarthritis, right hip
CPT/HCPCS: 36415; 71020; 80053; 81001; 85025; 85610; 85652; 85730; 93005

== ENCOUNTER 2017-04-26 05:45 | Inpatient (IN) | payer MEDICARE ==
[~2017-04-26] VITALS: Ht 175.3 cm; Wt 92.0 kg
[~2017-04-26 05:45] MED LIST changes: -ASPI-146 PO; -COMMODE 3-IN-11 MIS; -ENOX40IN SQ; -ENOX40P SQ; -OMEP20TA93 PO
[2017-04-26] MEDS ORDERED: GENTAMICIN SULFATE 80 MG/2 ML VIAL ONE (06:10)
[2017-04-26] MEDS ORDERED: TRANEXAMIC ACID INJ 900 MG in SODIUM CHLORIDE 0.9% INJ 100 ML IV SCH (06:15)
[2017-04-26] MEDS ORDERED: POVIDONE IODINE 7.5% SCRUB 118 ML BOTTLE TOPICAL SCH (06:15)
[2017-04-26] MEDS ORDERED: INSULIN HUMAN REGULAR 1,000 UNITS/10 ML VIAL SQ PRN (06:15)
[2017-04-26] MEDS ORDERED: METOPROLOL TARTRATE 25 MG TAB PO PRN (06:15)
[2017-04-26] MEDS ORDERED: DEXAMETHASONE SOD PHOS 20 MG/5 ML VIAL IV PRN (06:15)
[2017-04-26] MEDS ORDERED: VANCOMYCIN 1000 MG/NS 250 ML (for <70 kg) IV SCH ×2 (06:15)
[2017-04-26] MEDS ORDERED: CHLORHEXIDINE GLUCONATE 2 % 1 PACK (2 CLOTHS) TOPICAL PRN (06:15)
[2017-04-26] MEDS ORDERED: EXPAREL PERI-ARTICULAR INJECTION (TOTAL VOL. 60 ML) P-ARTICULR SCH ×2 (06:15)
[2017-04-26] MEDS ORDERED: SODIUM CHLORID 0.9% 500 ML IV PRN (06:15)
[2017-04-26] MEDS ORDERED: ceFAZolin 2 GM PREMIX 50 ML IV SCH (06:15)
[2017-04-26] MEDS ORDERED: POVIDONE IODINE 5% (ANTISEPSIS KIT) 4 APPLICATIONS EACH NARE PRN (06:15)
[2017-04-26] MEDS ORDERED: LACTATED RINGER'S 1000 ML IV PRN (06:15)
--- NOTE | 2017-04-26 06:52 | HHI.DCPOC ---
Discharge Care Plan Diagnosis: (1) Osteoarthritis of right hip (2) Status post total hip replacement, right Your Health Problems Are: Difficulty with ADL Goals to Promote Your Health * To prevent worsening of your condition and complications * To maintain your health at the optimal level Directions to Meet Your Goals Take your medications as prescribed Follow your dietary instruction Follow activity as directed Keep your appointments as scheduled Take your immunizations and boosters as scheduled If your symptoms worsen call your PCP, if no PCP go to Urgent Care Center or Emergency Room Smoking is Dangerous to Your Health. Avoid second hand smoke Call the 24-hour hour crisis hotline for domestic abuse at Kris Soni Apr 26, 2017 06:52
--- NOTE | 2017-04-26 06:53 | HHI.FF ---
Face to Face Verification Diagnosis: (1) Osteoarthritis of right hip (2) Status post total hip replacement, right Physical Therapy Gait training, Transfer training, bed to chair Hip: Total hip Right LE Weight Bearing: WB as tolerated Right LE Range of Motion: Active ROM Nursing Nursing: Jackelyn hernandez Dressing Changes: Do not change dressing Additional Instructions First dressing change will be in the office I have seen patient Augustus Erazo on 04/26/17. My clinical findings support the need for the requested home health care services because: Limited ability to care for self High risk of falls I certify that my clinical findings support that this patient is homebound because: Post-op weakness Unsteady gait/balance Kris Soni Apr 26, 2017 06:53
[2017-04-26] MEDS ORDERED: WALKER WHEELS/F1 MIS (06:55)
[2017-04-26] MEDS ORDERED: COMMODE 3-IN-11 MIS (06:55)
[2017-04-26] MEDS ORDERED: diphenhydrAMINE HCL 50 MG/ML VIAL IV PUSH PRN (08:45)
[2017-04-26] MEDS ORDERED: ONDANSETRON HCL 4 MG/2 ML VIAL IVP PRN (08:45)
[2017-04-26] MEDS ORDERED: Post-op Orders (for Pharmacy) MISC XX ONE (08:45)
[2017-04-26] MEDS ORDERED: MORPHINE SULFATE 4 MG/ML INJ IV PUSH PRN (08:45)
[2017-04-26] MEDS ORDERED: ZOLPIDEM TARTRATE 5 MG TAB PO PRN (08:45)
[2017-04-26] MEDS ORDERED: BISACODYL 10 MG SUPP RECTAL PRN (08:45)
[2017-04-26] MEDS ORDERED: SODIUM CHLORIDE 0.9% FLUSH 5 ML FLUSH IVF PRN (08:45)
[2017-04-26] MEDS ORDERED: ALUMINUM/MAGNESIUM/SIMETH 30 ML CUP PO PRN (08:45)
[2017-04-26] MEDS ORDERED: NALOXONE HCL 0.4 MG/ML AMP IV PUSH PRN (08:45)
--- NOTE | 2017-04-26 08:45 | RADRPT ---
EXAM DATE/TIME: 04/26/2017 07:17 [facility] COMPARISON: No previous studies available for comparison. INDICATIONS : Right anterior hip replacement done in operating room. MEDICAL HISTORY : None. SURGICAL HISTORY : None. ENCOUNTER: Initial ACUITY: 1 day PAIN SCORE: Non-responsive. LOCATION: Right hip. FINDINGS: 2 magnified C. arm spot views show a total hip prosthesis in good position. No gross fracture on thes e limited images. Air and fluid is noted within the joint. CONCLUSION: Limited images as detailed above. Shyam Pillai Jr., MD on April 26, 2017 at 8:42 Board Certified Radiologist. This report was verified electronically.
--- NOTE | 2017-04-26 08:46 | PD.OP ---
cc: Federico Zamarripa MD Operative Report Date of Surgery: Apr 26, 2017 Preoperative Diagnosis: Right hip severe osteoarthritis Postoperative Diagnosis: Same Procedure: Right total hip arthroplasty Anesthesia: Gen. Surgeon: Federico Zamarripa Bottling Attendant(s): ALEXA Owens The surgical procedure was assisted by my Advanced Registered Nurse Practitioner. My NETWORK ARCHITECT presence was necessary throughout this case for the manipulation and positioning of the surgical extremity. My NETWORK ARCHITECT was assisting me throughout the duration of this procedure. The skill set of an Advance Registered Nurse Practitioner was medically necessary to complete this procedure. During the surgical case, the instructor adjunct surgical technician was working at the back table and the Advance Registered Nurse Practitioner was directly assisting me. Operation and Findings: IMPLANT DESCRIPTION: 1. [place] Gription Cup, acetabular size 52. 2. [place] AltrX polyethylene, neutral. 4. [place] femoral stem size 12, no collar, standard offset. 5. Femoral head/neck metal, 36, +1.5. ESTIMATED BLOOD LOSS: 350 cc. JUSTIFICATION FOR PROCEDURE: The patient has end-stage osteoarthritis to the hip. There is an attached conservative measures pathway form in the chart that describes the nonoperative measures that were undertaken prior to consideration of surgical management. The patient understood the risks and benefits of surgical management. See my office notes for further details. PROCEDURE: The patient was brought back to the operative theatre. Adequate anesthesia was obtained. The patient received intravenous vancomycin and Ancef. The patient was carefully placed on the operative table. The lower extremity was prepped and draped in the usual sterile fashion. Fluoroscopic images were obtained. We made a standard anterior incision over the hip. We dissected through the TFL fascia, exposing the anterior capsule. Arthrotomy was performed in a T-shaped fashion. The capsule was tagged with a #2 FiberWire. End-stage arthritis was identified. Osteotomy was performed through the femoral neck exposing the acetabulum. Remnants of the labrum were resected and osteophytes were removed. We sequentially reamed the acetabulum. We trialed the hip and placed the final cup into position. This was done under fluoroscopic guidance to obtain the appropriate inclination and anteversion. A manhole cover was placed into the acetabular component. We then placed the final polyethylene into position and confirmed that it was well seated. Capsular attachments on the calcar and the inner aspect of the greater trochanter were resected. On the proximal aspect of the femur we used a rongeur , box osteotome, canal finder, sequential broaches and lateralizing rasp. We calcar planed the proximal femur. Then thoroughly irrigated the wound. We trialed the hip with the appropriate size stem. We placed the final stem in to position and trialed again. The hip was stable while it was externally rotated 70 degrees when the leg was lowered to the floor. The final head was applied, and final fluoroscopic images were obtained. The wound was thoroughly irrigated again. Interarticular injection of liposomal bupivacaine was given. The capsule was closed with #2 FiberWire and #1 Vicryl. The deep fascia was closed with a #2 Stratafix, followed by 2-0 Vicryl in the skin and Dermabond dressing. Postop plan is to weight-bear as tolerated. DVT prophylaxis will be performed with Joseline, JESUS perez, early mobilization, and Lovenox followed by aspirin. Federico Zamarripa MD Apr 26, 2017 08:46
[2017-04-26] MEDS ORDERED: NORC5TAB PO (08:47)
[2017-04-26] MEDS ORDERED: ENOX40IN SQ (08:47)
[2017-04-26] MEDS ORDERED: ASPI-146 PO (08:47)
[2017-04-26] MEDS: SODIUM CHLORIDE 0.9% FLUSH 5 ML FLUSH IVF SCH ×2 (09:00→19:54)
[2017-04-26] MEDS ORDERED: DO NOT ADM ANY ANTICOAGULANT DRUGS PRN (09:11)
[2017-04-26] MEDS ORDERED: GLUCAGON 1 MG/ML VIAL OTHER PRN (09:15)
[2017-04-26] MEDS ORDERED: DEXTROSE 50% IN WATER 50 ML VIAL(D50) IV PUSH PRN (09:15)
[2017-04-26] MEDS ORDERED: cloNIDine HCL 0.1 MG TAB PO PRN (09:15)
[2017-04-26] MEDS ORDERED: *morphine SULFATE 8 MG/ML PERIprocedure ONLY ONE ×2 (09:17→09:45)
--- NOTE | 2017-04-26 09:34 | PD.CONS ---
HPI Service [facility] Consult Requested By DR AYESHA FELDMAN Reason for Consult MEDICAL MANAGEMENT Primary Care Physician Paul Goncalves MD Diagnoses: (1) Hypertension (2) Diabetes mellitus (3) Anxiety and depression (4) Status post total hip replacement, right (5) Osteoarthritis of right hip History of Present Illness Patient is a 71-year-old male who underwent right total hip arthroplasty today with Dr. Feldman due to severe osteoarthritis We have been consulted for help with medical management. Patient's past medical history significant for history of hypertension diabetes depression and anxiety and osteoarthritis Review of Systems ROS Limitations: Altered Mental Status Except as stated in HPI: all other systems reviewed are Neg Past Family Social History Allergies: Coded Allergies: No Known Allergies (Unverified Allergy, Unknown, 04/26/17) Past Medical History Hypertension Diabetes Depression Anxiety Osteoarthritis Hyperlipidemia GERD Past Surgical History PYLORIC STENOSIS Exploratory laparotomy for lysis of adhesion Appendectomy Reported Medications Reported Meds & Active Scripts Active Enoxaparin Inj (Enoxaparin Sodium) 40 Mg/0.4 Ml Syr 40 Mg SQ DAILY Start Aspirin after Lovenox is completed. Ecotrin Regular Strength (Aspirin) 325 Mg Tabdr 325 Mg PO DAILY Start Aspirin after Lovenox is completed. [place] (Hydrocodone-Acetaminophen) 5 Mg-325 Mg Tab 1-2 Tab PO Q4H PRN Aspirin 325 Mg Tab 325 Mg PO DAILY Start Aspirin after Lovenox is completed. [place] (Hydrocodone-Acetaminophen) 5-325 mg Tab 1-2 Tab PO Q4H PRN Reported Vitamin B-12 ER (Cyanocobalamin) 2,000 Mcg Tab 2,500 Mcg PO DAILY Preservision Areds (Multiple Vitamins W/ Minerals) 1 Tab 3 Tab PO DAILY Fluoxetine (Fluoxetine HCl) 10 Mg Tab 10 Mg PO DAILY Lisinopril 40 Mg Tab 40 Mg PO DAILY Metformin ER (Metformin HCl) 500 Mg Marlin 500 Mg PO DAILY With evening meal Active Ordered Medications Current Medications Lactated Ringer's 1,000 ml @ 30 mls/hr Q24H PRN IV SEE LABEL COMMENTS Last administered on 04/26/17t 06:20; Start 04/26/17 at 06:15; Stop 04/29/17 at 06: 14 Sodium Chloride 500 ml @ 30 mls/hr [id number] PRN IV SEE LABEL COMMENTS; Start at 06:15; Stop 04/29/17 at 06:14 Metoprolol Tartrate (Lopressor) 25 mg OUTREACH SPECIALIST PRN PO SEE LABEL COMMENTS; Start 04/26/17 at 06:15; Stop 04/29/17 at 06:14 Povidone Iodine (Betadine 5% Antisepsis Kit) 1 applic OUTREACH SPECIALIST PRN EACH NARE SEE LABEL COMMENTS Last administered on 04/26/17 06:00; Start 04/26/17 at 06: 15; Stop 04/29/17 at 06:14 Chlorhexidine Gluconate (Chlorhexidine 2% Cloth) 3 pack OUTREACH SPECIALIST PRN TOPICAL SEE LABEL COMMENTS Last administered on 04/26/17 06:00; Start 04/26/17 at 06: 15; Stop 04/29/17 at 06:14 Insulin Human Regular (NovoLIN R INJ) See Protocol Table ... OUTREACH SPECIALIST PRN SQ SEE PROTOCOL TABLE; Start 04/26/17 at 06:15; Stop 04/29/17 at 06:14 Dexamethasone Sodium Phosphate (Decadron Inj) 10 mg OUTREACH SPECIALIST PRN IV GIVE IN OR HOLDING Last administered on 04/26/17 06:25; Start 04/26/17 at 06:15; Stop 04/27/17 at 06:14 Povidone Iodine (Betadine 7.5% Scrub) 1 applic ONCE TOPICAL Last administered on 04/26/17 06:00; Start 04/26/17 at 06:15; Stop 04/29/17 at 06:14 Cefazolin Sodium/ Dextrose 50 ml @ 100 mls/hr OUTREACH SPECIALIST IV Last administered on 04/26/17 06:35; Start 04/26/17 at 06:15; Stop 04/29/17 at 06:14 Vancomycin HCl 1000 mg/Sodium Chloride 250 ml @ 250 mls/hr OUTREACH SPECIALIST IV Last administered on 04/26/17 06:35; Start 04/26/17 at 06:15; Stop 04/29/17 at 06: 14 Tranexamic Acid 900 mg/Sodium Chloride 109 ml @ 200 mls/hr ONCE IV Last administered on 04/26/17 07:11; Start 04/26/17 at 06:15; Stop 04/26/17 at 16 :00 Bupivacaine Liposome 20 ml/ Sodium Chloride 60 ml @ 120 mls/hr ONCE P-ARTICULR Last administered on 04/26/17 07:32; Start 04/26/17 at 06:15; Stop at 16:00 Gentamicin Sulfate (Gentamicin Inj) 240 mg STK-MED ONCE .ROUTE Last administered on 04/26/17 07:32; Start 04/26/17 at 06:10; Stop 04/26/17 at 06 :11; Status DC Fluoxetine HCl (PROzac) 10 mg DAILY PO ; Start 04/26/17 at 09:00; Status UNV Non-Formulary Medication 40 mg DAILY PO ; Start 04/26/17 at 09:00; Status UNV Non-Formulary Medication 500 mg DAILY PO ; Start 04/26/17 at 09:00; Status UNV Sodium Chloride 1,000 ml @ 100 mls/hr Q10H IV ; Start 04/26/17 at 08:42; Status UNV IV Flush (NS Flush) 2 ml UNSCH PRN IVF FLUSH AFTER USING IV ACCESS; Start at 08:45; Status UNV IV Flush (NS Flush) 2 ml BID IVF ; Start 04/26/17 at 09:00; Status UNV Cefazolin Sodium 1000 mg/Sodium Chloride 100 ml @ 200 mls/hr Q6H IV ; Start at 08:45; Stop 04/26/17 at 21:14; Status UNV Miscellaneous Information (Post-op Orders (for Pharmacy)) STAT ONCE XX ; Start 04/26/17 at 08:45; Stop 04/26/17 at 08:46; Status UNV Dexamethasone Sodium Phosphate (Decadron Inj) 10 mg ONCE ONCE IV ; Start 04/27 at 07:45; Stop 04/27/17 at 07:46; Status UNV Enoxaparin Sodium (Lovenox Inj) 40 mg Q24H SQ ; Start 04/26/17 at 08:45; Stop 05/05/17 at 08:46; Status UNV Acetaminophen/ Hydrocodone Bitart ([place] 5-325 Mg) 1 tab Q4H PRN PO PAIN LESS THAN 5 ON SCALE; Start 04/26/17 at 08:45; Status UNV Acetaminophen/ Hydrocodone Bitart ([place] 5-325 Mg) 2 tab Q4H PRN PO PAIN SCALE 5 TO 10; Start 04/26/17 at 08:45; Status UNV Tranexamic Acid / Sodium Chloride 100 ml @ 200 mls/hr UNSCH IV ; Start at 08:45; Stop 04/26/17 at 09:14; Status UNV Multivitamins/ Minerals Therapeutic (Theragran M Tab) 1 tab BID PO ; Start at 21:00; Stop 06/26/17 at 20:59; Status UNV Ondansetron HCl (Zofran Inj) 4 mg Q6H PRN IVP NAUSEA OR VOMITING; Start at 08:45; Status UNV Docusate Sodium (Colace) 100 mg BID PO ; Start 04/27/17 at 21:00; Status UNV Al Hydrox/Mg Hydrox/Simethicone (Mag-Al Plus Susp Liq) 30 ml Q6H PRN PO INDIGESTION; Start 04/26/17 at 08:45; Status UNV Zolpidem Tartrate (Ambien) 5 mg HS PRN PO SLEEP; Start 04/26/17 at 08:45; Status UNV Bisacodyl (Dulcolax Supp) 10 mg DAILY PRN NE CONSTIPATION; Start 04/26/17 at 08:45; Status UNV Magnesium Hydroxide (Milk Of Magnesia Liq) 30 ml DAILY PRN PO CONSTIPATION; Start 04/26/17 at 08:45; Status UNV Naloxone HCl (Narcan Inj) 0.4 mg UNSCH PRN IV PUSH RESPIRATORY RATE LESS THAN 10; Start 04/26/17 at 08:45; Status UNV Diphenhydramine HCl (Benadryl Inj) 25 mg Q6H PRN IV PUSH ITCHING; Start at 08:45; Status UNV Morphine Sulfate (Morphine Inj) 2 mg Q3H PRN IV PUSH pain greater than 5; Start 04/26/17 at 08:45; Status UNV Clonidine (Catapres) 0.1 mg Q4H PRN PO SBP>160, DBP>90; Start 04/26/17 at 09: 15; Status UNV Dextrose (D50w (Vial) Inj) 50 ml UNSCH PRN IV PUSH HYPOGLYCEMIA-SEE COMMENTS; Start 04/26/17 at 09:15; Status UNV Glucagon (Glucagon Inj) 1 mg UNSCH PRN OTHER HYPOGLYCEMIA-SEE COMMENTS; Start 04/26/17 at 09:15; Status UNV Insulin Aspart (NovoLOG SUPPLEMENTAL SCALE) 1 ACHS SLIDING SCALE SQ ; Start at 12:00; Status UNV Morphine Sulfate (*morphine INJ PERIprocedure ONLY) 8 mg STK-MED ONCE .ROUTE ; Start 04/26/17 at 09:17; Stop 04/26/17 at 09:18; Status DC Family History No history of tobacco abuse in the family Probable hypertension Social History History of tobacco quit many many years ago Occasional alcoholic beverage Denies any illicits Physical Exam Vital Signs Vital Signs Date Time Temp Pulse Resp B/P (MAP) Pulse Ox O2 Delivery O2 Flow Rate FiO2 04/26/17 06:16 98.7 67 16 144/90 (108) 100 Physical Exam GENERAL: This is a well-nourished, well-developed patient, in no apparent distress. White lethargic post surgery seen in PACU SKIN: No rashes, ecchymoses or lesions. Cool and dry. HEAD: Atraumatic. Normocephalic. No temporal or scalp tenderness. EYES: Pupils equal round and reactive. Extraocular motions intact. No scleral icterus. No injection or drainage. ENT: Nose without bleeding, purulent drainage or septal hematoma. Throat without erythema, tonsillar hypertrophy or exudate. Uvula midline. Airway patent. NECK: Trachea midline. No JVD or lymphadenopathy. Supple, nontender, no meningeal signs. CARDIOVASCULAR: Regular rate and rhythm without murmurs, gallops, or rubs. S1- S2 no S3 or S4 RESPIRATORY: Clear to auscultation. Breath sounds equal bilaterally. No wheezes , rales, or rhonchi. GASTROINTESTINAL: Abdomen soft, non-tender, nondistended. No hepato-splenomegaly , or palpable masses. No guarding. MUSCULOSKELETAL: Extremities without clubbing, cyanosis, or edema. No joint tenderness, effusion, or edema noted. No calf tenderness. Negative Homans sign bilaterally. NEUROLOGICAL: Awake and alert but lethargic. Cranial nerves II through XII intact. Motor and sensory grossly within normal limits. 4 out of 5 muscle strength in all muscle groups. Normal speech. Lethargic post surgery Not able to assess insight and judgment at this time Not able to assess mood and behavior at this time Imaging Last Impressions Hip X-Ray 04/26/17 0000 Signed Impressions: Service Date/Time: Wednesday, April 26, 2017 07:17 - CONCLUSION: Limited images as detailed above. Shyam Pillai Jr., MD Assessment and Plan Problem List: (1) GERD (gastroesophageal reflux disease) ICD Code: K21.9 - Gastro-esophageal reflux disease without esophagitis (2) Status post total hip replacement, right ICD Code: Z96.641 - Presence of right artificial hip joint (3) Osteoarthritis of right hip ICD Code: M16.11 - Unilateral primary osteoarthritis, right hip (4) Anxiety and depression ICD Code: F41.8 - Other specified anxiety disorders (5) Hypertension ICD Code: I10 - Essential (primary) hypertension (6) Diabetes mellitus ICD Code: E11.9 - Type 2 diabetes mellitus without complications (7) Osteoarthritis of left hip ICD Code: M16.12 - Unilateral primary osteoarthritis, left hip Status: Acute Assessment and Plan Patient is a 71-year-old male who underwent right total hip arthroplasty by Dr. Feldman tolerated Status post right total hip arthroplasty for severe osteoarthritis will defer to orthopedic for pain control and anticoagulation Hypertension continue on home medications GERD PPI as needed Diabetes mellitus continue on sliding scale coverage with Accu-Cheks and before meals and at bedtime as well as his home metformin Depression and anxiety continue on home medications A.m. labs Continue on sliding scale coverage Physical therapy and occupational therapy Pain control Discussed with patient and RN Code Status FULL Code Discussed Condition With Discussed with patient and RN Problem Qualifiers (1) Osteoarthritis of right hip: Qualified Codes: M16.11 - Unilateral primary osteoarthritis, right hip Nikita Dunaway DO Apr 26, 2017 09:34
[2017-04-26] MEDS ORDERED: SODIUM CHLORIDE 0.9% IV SCH (10:00)
[2017-04-26] MEDS ORDERED: TRANEXAMIC ACID IV SCH (10:00)
[2017-04-26] MEDS: SODIUM CHLOR 0.9% 1000 ML INJ 1,000 ML IV SCH ×3 (10:00→19:55)
--- NOTE | 2017-04-26 10:06 | RADRPT ---
EXAM DATE/TIME: 04/26/2017 09:33 [facility] COMPARISON: No previous studies available for comparison. INDICATIONS : Post op right hip surgery MEDICAL HISTORY : None. SURGICAL HISTORY : None. ENCOUNTER: Initial ACUITY: 1 day PAIN SCORE: Non-responsive. LOCATION: Right hip and pelvis FINDINGS: Multiple views of the pelvis and right hip reveal a total hip prosthesis on the right in good positio n. No fracture. Some fluid is noted within the joint. Overlying soft tissue swelling observed. A prio r left hip prosthesis is partially seen. Bony pelvis is intact. CONCLUSION: Right hip prosthesis in good position. Shyam Pillai Jr., MD on April 26, 2017 at 10:03 Board Certified Radiologist. This report was verified electronically.
[2017-04-26] MEDS ORDERED: PILL SPLITTER OTHER PRN (10:30)
[2017-04-26] MEDS: metFORMIN HCL 500 MG TAB PO SCH ×2 (10:30→18:15)
[2017-04-26 12:00] VITALS: BP 147/82; PULSE 86; RESP 18; TEMP 95.6; O2SAT 100
[2017-04-26] MEDS ORDERED: MORPHINE SULFATE 4 MG/ML INJ IV ONE (12:00)
[2017-04-26] MEDS ORDERED: MIDAZOLAM HCL 2 MG/2 ML VIAL IV ONE (12:00)
[2017-04-26] MEDS ORDERED: PROPOFOL 200 MG/20 ML AMP IV ONE (12:00)
[2017-04-26] MEDS: INSULIN ASPART SUPPLEMENTAL SCALE SQ SCH ×4 (12:00→19:54)
[2017-04-26] MEDS ORDERED: ePHEDrine/NS 25 MG/5 ML SYR IV ONE (12:00)
[2017-04-26] MEDS ORDERED: ONDANSETRON HCL 4 MG/2 ML VIAL IV PUSH ONE (12:00)
[2017-04-26] MEDS ORDERED: LIDOCAINE HCL 1% PF 5 ML SYRINGE OTHER ONE (12:00)
[2017-04-26] MEDS ORDERED: DEXAMETHASONE SOD PHOS 4 MG/ML VIAL IV ONE (12:00)
[2017-04-26] MEDS ORDERED: ROCURONIUM INJ 50 MG/5 ML SYRINGE IV PUSH ONE (12:00)
[2017-04-26 15:19] VITALS: BP 148/81; PULSE 94; RESP 20; TEMP 96.4; O2SAT 98
[2017-04-26] MEDS: ACETAMINOPHEN/HYDROcodone 325 MG/5 MG TAB PO PRN (19:54)
[2017-04-26 20:50] VITALS: BP 159/86; PULSE 79; RESP 18; TEMP 98.8; O2SAT 96
[2017-04-27] MEDS: SODIUM CHLOR 0.9% 1000 ML INJ 1,000 ML IV SCH ×2 (00:23→20:09)
[2017-04-27 00:34] VITALS: BP 126/72; PULSE 92; RESP 18; TEMP 97.7; O2SAT 98
[2017-04-27] MEDS: ACETAMINOPHEN/HYDROcodone 325 MG/5 MG TAB PO PRN ×2 (04:36→12:25)
[2017-04-27 04:40] VITALS: BP 166/92; PULSE 92; RESP 18; TEMP 98.1; O2SAT 96
[2017-04-27 07:00] LABS: AUTOMATED NEUTROPHIL # 10.4 TH/MM3 (1.8-7.7); BASOPHIL % 0.2 % (0.0-2.0); EOSINOPHIL % 0.1 % (0.0-4.0); HEMO FLAGS DIFF FINAL; LYMPH % 5.4 % (9.0-44.0); LYMPHOCYTE # 0.7 TH/MM3 (1.0-4.8); MEAN CELL VOLUME 86.5 FL (80.0-100.0); MEAN CORPUSCULAR HEMOGLOBIN 28.1 PG (27.0-34.0); MEAN CORPUSCULAR HGB CONC 32.5 % (32.0-36.0); MONO % 13.8 % (0.0-8.0); NEUT % 80.5 % (16.0-70.0); PLATELET COUNT 239 TH/MM3 (150-450); RED BLOOD COUNT 4.05 MIL/MM3 (4.50-5.90); RED CELL DISTRIBUTION WIDTH 14.2 % (11.6-17.2); WHITE BLOOD COUNT 12.9 TH/MM3 (4.0-11.0)
[2017-04-27 07:21] LABS: ALT (GPT) 276 U/L (12-78); ANION GAP 8 MEQ/L (5-15); AST (GOT) 174 U/L (15-37); BICARBONATE 25.6 MEQ/L (21.0-32.0); BLOOD UREA NITROGEN 24 MG/DL (7-18); CHLORIDE 106 MEQ/L (98-107); GLOMERULAR FILTRATION RATE 62 ML/MIN (>89); MAGNESIUM 1.8 MG/DL (1.5-2.5); POTASSIUM 3.8 MEQ/L (3.5-5.1); SODIUM (NA) 140 MEQ/L (136-145)
[2017-04-27 07:30] LABS: ALKALINE PHOSPHATASE 67 U/L (45-117); FREE T4 1.02 NG/DL (0.76-1.46); TOTAL BILIRUBIN ADULT 0.7 MG/DL (0.2-1.0)
[2017-04-27] MEDS ORDERED: DEXAMETHASONE SOD PHOS 20 MG/5 ML VIAL IV ONE (07:45)
[2017-04-27] MEDS: ENOXAPARIN SODIUM 40 MG/0.4 ML SYRINGE SQ SCH (08:06)
[2017-04-27] MEDS: FLUoxetine HCL 10 MG CAP PO SCH (08:07)
[2017-04-27] MEDS: metFORMIN HCL 500 MG TAB PO SCH ×2 (08:07→17:55)
[2017-04-27] MEDS: INSULIN ASPART SUPPLEMENTAL SCALE SQ SCH ×4 (08:07→20:13)
[2017-04-27] MEDS: SODIUM CHLORIDE 0.9% FLUSH 5 ML FLUSH IVF SCH ×2 (08:07→20:13)
[2017-04-27] MEDS: LISINOPRIL 20 MG TAB PO SCH (08:08)
[2017-04-27 08:18] VITALS: BP 109/63; PULSE 89; RESP 16; TEMP 98.8; O2SAT 95
--- NOTE | 2017-04-27 11:24 | HHI.PR ---
Subjective Remarks Patient seen and examined He status post right total hip arthroplasty He Was up ambulating using a walker Reports improvement of right hip pain Objective Vitals Vital Signs Date Time Temp Pulse Resp B/P (MAP) Pulse Ox O2 Delivery O2 Flow Rate FiO2 04/27/17 08:18 98.8 89 16 109/63 (78) 95 04/27/17 04:40 98.1 92 18 166/92 (116) 96 04/27/17 00:34 97.7 92 18 126/72 (90) 98 04/26/17 20:50 98.8 79 18 159/86 (110) 96 04/26/17 15:19 96.4 94 20 148/81 (103) 98 04/26/17 12:00 95.6 86 18 147/82 (103) 100 I/O 04/26/17 04/26/17 04/26/17 04/27/17 04/27/17 04/27/17 07:00 15:00 23:00 07:00 15:00 23:00 Intake Total 1750 ml 360 ml 1840 ml Output Total 350 ml 175 ml 1800 ml Balance 1400 ml 185 ml 40 ml Intake Oral 360 ml 240 ml IV Total 1750 ml 1600 ml Output Urine Total 175 ml 1800 ml Estimated Blood Loss 350 ml Bladder Scan Volume Amount 1000 ml # Bowel Movements 0 Result Diagram: 04/27/17 0525 04/27/17 0535 Imaging Last Impressions Hip and Pelvis X-Ray 04/26/17 0842 Signed Impressions: Service Date/Time: Wednesday, April 26, 2017 09:33 - CONCLUSION: Right hip prosthesis in good position. Shyam Pillai Jr., MD Hip X-Ray 04/26/17 0000 Signed Impressions: Service Date/Time: Wednesday, April 26, 2017 07:17 - CONCLUSION: Limited images as detailed above. Shyam Pillai Jr., MD Objective Remarks GENERAL: NAD and up and ambulating using a walker SKIN: Warm and dry. HEAD: Normocephalic. EYES: No scleral icterus. No injection or drainage. NECK: Supple, trachea midline. No JVD or lymphadenopathy. CARDIOVASCULAR: Regular rate and rhythm without murmurs, gallops, or rubs. RESPIRATORY: Breath sounds equal bilaterally. No accessory muscle use. GASTROINTESTINAL: Abdomen soft, non-tender, nondistended. MUSCULOSKELETAL: No cyanosis, or edema. Hip repair-neurovascular intact BACK: Nontender without obvious deformity. No CVA tenderness. A/P Problem List: (1) GERD (gastroesophageal reflux disease) ICD Code: K21.9 - Gastro-esophageal reflux disease without esophagitis (2) Status post total hip replacement, right ICD Code: Z96.641 - Presence of right artificial hip joint (3) Osteoarthritis of right hip ICD Code: M16.11 - Unilateral primary osteoarthritis, right hip (4) Anxiety and depression ICD Code: F41.8 - Other specified anxiety disorders (5) Hypertension ICD Code: I10 - Essential (primary) hypertension (6) Diabetes mellitus ICD Code: E11.9 - Type 2 diabetes mellitus without complications (7) Osteoarthritis of left hip ICD Code: M16.12 - Unilateral primary osteoarthritis, left hip Status: Acute Assessment and Plan 71-year-old man with Severe right hip OA Status post right total hip arthroplasty Management per orthopedic surgery Pain management accordingly PT to treat and eval Lovenox for DVT prophylaxis Diabetes type 2 Continue metformin, insulin sliding scale. Hypertension Continue with lisinopril 40 mg daily Other chronic medical conditions Continue outpatient medications DVT prophylaxis: Lovenox Problem Qualifiers (1) Osteoarthritis of right hip: Qualified Codes: M16.11 - Unilateral primary osteoarthritis, right hip Michael Bowers MD Apr 27, 2017 11:24
[2017-04-27 12:00] VITALS: BP 105/72; PULSE 80; RESP 16; TEMP 98.5; O2SAT 96
--- NOTE | 2017-04-27 12:56 | PD.ORT.PN ---
Subjective Post Op Day #: 1 Subjective Remarks Patient is resting in bed in NAD. Patient c/o right hip stiffness with mild pain. Patient has had urinary difficulty and had to have a Valente cath placed. Objective Vitals Vital Signs Date Time Temp Pulse Resp B/P (MAP) Pulse Ox O2 Delivery O2 Flow Rate FiO2 04/27/17 08:18 98.8 89 16 109/63 (78) 95 04/27/17 04:40 98.1 92 18 166/92 (116) 96 04/27/17 00:34 97.7 92 18 126/72 (90) 98 04/26/17 20:50 98.8 79 18 159/86 (110) 96 04/26/17 15:19 96.4 94 20 148/81 (103) 98 I/O 04/26/17 04/26/17 04/26/17 04/27/17 04/27/17 04/27/17 07:00 15:00 23:00 07:00 15:00 23:00 Intake Total 1750 ml 360 ml 1840 ml Output Total 350 ml 175 ml 1800 ml 1300 ml Balance 1400 ml 185 ml 40 ml -1300 ml Intake Oral 360 ml 240 ml IV Total 1750 ml 1600 ml Output Urine Total 175 ml 1800 ml 1300 ml Estimated Blood Loss 350 ml Bladder Scan Volume Amount 1000 ml # Bowel Movements 0 Result Diagram: 04/27/1725 04/27/17 0535 Procedures Right ELPIDIO Objective Remarks The patient's dressing is C/D/I. EHL/TA/G intact. 2+ pedal pulse. Calf is soft and nontender. Mild ecchymosis to the right hip. + SILT. Assessment & Plan Ortho Post Op Day #: 1 Problem List: Assessment and Plan POD #1: Right ELPIDIO 1. WBAT RLE 2. Lovenox followed by [facility] for DVT prophylaxis 3. Ice to the right hip PRN 4. Plan is for discharge to SNF on Monday. 5. Patient will f/u with Dr. Zamarripa or ALEXA Damian as previously scheduled. 6. Bladder training for anticipated discontinuation of Valente Cath. Order placed for UA and urology consult. Kris Soni Apr 27, 2017 12:56
[2017-04-27 16:30] VITALS: BP 128/81; PULSE 75; RESP 16; TEMP 98.2; O2SAT 100
[2017-04-27 17:32] LABS: HEMOGLOBIN A1a 1.2 %; HEMOGLOBIN A1b 1.3 %; HEMOGLOBIN Ao 82.8 %; HEMOGLOBIN F 1.1 %; HEMOGLOBIN LA1C 2.4 %; HEMOGLOBIN P3 4.3 %
[2017-04-27] MEDS: MULTIVITAMINS/MINERALS THERAPEUTIC TAB PO SCH (20:12)
[2017-04-27] MEDS: MAGNESIUM HYDROXIDE SUSP 30 ML CUP PO PRN (20:12)
[2017-04-27] MEDS: DOCUSATE SODIUM 100 MG CAP PO SCH (20:12)
[2017-04-27 20:46] VITALS: BP 121/73; PULSE 84; RESP 18; TEMP 97.8; O2SAT 99
[2017-04-28 00:13] VITALS: BP 117/73; PULSE 75; RESP 18; TEMP 96.8; O2SAT 98
[2017-04-28] MEDS: ACETAMINOPHEN/HYDROcodone 325 MG/5 MG TAB PO PRN ×3 (05:12→21:16)
[2017-04-28 05:55] LABS: MEAN CELL VOLUME 86.9 FL (80.0-100.0); MEAN CORPUSCULAR HEMOGLOBIN 27.7 PG (27.0-34.0); MEAN CORPUSCULAR HGB CONC 31.9 % (32.0-36.0); PLATELET COUNT 203 TH/MM3 (150-450); RED CELL DISTRIBUTION WIDTH 14.3 % (11.6-17.2); REVIEW FLAG FINAL; WHITE BLOOD COUNT 11.4 TH/MM3 (4.0-11.0)
[2017-04-28 08:00] VITALS: BP 119/76; PULSE 66; RESP 16; TEMP 97.7; O2SAT 95
[2017-04-28] MEDS: INSULIN ASPART SUPPLEMENTAL SCALE SQ SCH ×4 (08:00→21:00)
[2017-04-28] MEDS: MULTIVITAMINS/MINERALS THERAPEUTIC TAB PO SCH ×2 (08:11→21:15)
[2017-04-28] MEDS: DOCUSATE SODIUM 100 MG CAP PO SCH ×2 (08:11→21:15)
[2017-04-28] MEDS: ENOXAPARIN SODIUM 40 MG/0.4 ML SYRINGE SQ SCH (08:11)
[2017-04-28] MEDS: MAGNESIUM HYDROXIDE SUSP 30 ML CUP PO PRN (08:12)
[2017-04-28] MEDS: LISINOPRIL 20 MG TAB PO SCH (08:12)
[2017-04-28] MEDS: metFORMIN HCL 500 MG TAB PO SCH ×2 (08:12→16:56)
[2017-04-28] MEDS: FLUoxetine HCL 10 MG CAP PO SCH (08:12)
[2017-04-28] MEDS: SODIUM CHLORIDE 0.9% FLUSH 5 ML FLUSH IVF SCH ×2 (08:14→21:00)
[2017-04-28] MEDS: SODIUM CHLOR 0.9% 1000 ML INJ 1,000 ML IV SCH ×3 (08:17→21:17)
--- NOTE | 2017-04-28 09:07 | HHI.PR ---
Subjective Remarks Follow-up for hip surgery Patient had questions about possible UTI. He stated that he was told he had a UTI. I told patient that I was not aware that not this is not in his medical records. Patient stated that he was told this because he had some urinary retention after surgery. I told patient this is most likely due to anesthesia. Patient denies any burning urination, urinating more often, or urinating often at night. He remains afebrile he has no other complaints. I also went over mildly elevated LFTs and asked patient if he is aware of this. When I started to explain to him possible differential diagnosis for elevated LFTs he stated that he thinks he does remember this. He denies any hepatitis infection. He denies any abdominal pain, nausea/ vomiting, diarrhea or constipation. ct tech is at the bedside during the interview. Patient remains afebrile. Objective Vitals Vital Signs Date Time Temp Pulse Resp B/P (MAP) Pulse Ox O2 Delivery O2 Flow Rate FiO2 04/28/17 00:13 96.8 75 18 117/73 (88) 98 04/27/17 20:46 97.8 84 18 121/73 (89) 99 04/27/17 16:30 98.2 75 16 128/81 (97) 100 04/27/17 12:00 98.5 80 16 105/72 (83) 96 I/O 04/27/17 04/27/17 04/27/17 04/28/17 04/28/17 04/28/17 07:00 15:00 23:00 07:00 15:00 23:00 Intake Total 1840 ml 360 ml 360 ml Output Total 1800 ml 1300 ml 300 ml 700 ml Balance 40 ml -1300 ml 60 ml -340 ml Intake Oral 240 ml 360 ml 360 ml IV Total 1600 ml Output Urine Total 1800 ml 1300 ml 300 ml 700 ml # Bowel Movements 0 0 Result Diagram: 04/28/17 0423 04/27/17 0535 Objective Remarks GENERAL: in NAD CARDIOVASCULAR: Regular rate and rhythm without murmurs, gallops, or rubs. RESPIRATORY: Breath sounds equal bilaterally. No accessory muscle use. GASTROINTESTINAL: Abdomen soft, non-tender, nondistended. MUSCULOSKELETAL: No cyanosis, or edema. BACK: Nontender without obvious deformity. No CVA tenderness. Medications and IVs Current Medications Lactated Ringer's 1,000 ml @ 30 mls/hr Q24H PRN IV SEE LABEL COMMENTS Last administered on 04/26/17 06:20; Start 04/26/17 at 06:15; Stop 04/27/17 at 07 :53; Status DC Sodium Chloride 500 ml @ 30 mls/hr [id number] PRN IV SEE LABEL COMMENTS; Start at 06:15; Stop 04/27/17 at 07:53; Status DC Metoprolol Tartrate (Lopressor) 25 mg SERVICE ADMINISTRATOR PRN PO SEE LABEL COMMENTS; Start 04/26/17 at 06:15; Stop 04/27/17 at 07:53; Status DC Povidone Iodine (Betadine 5% Antisepsis Kit) 1 applic SERVICE ADMINISTRATOR PRN EACH NARE SEE LABEL COMMENTS Last administered on 04/26/17 06:00; Start 04/26/17 at 06: 15; Stop 04/27/17 at 07:53; Status DC Chlorhexidine Gluconate (Chlorhexidine 2% Cloth) 3 pack SERVICE ADMINISTRATOR PRN TOPICAL SEE LABEL COMMENTS Last administered on 04/26/17 06:00; Start 04/26/17 at 06: 15; Stop 04/27/17 at 07:53; Status DC Insulin Human Regular (NovoLIN R INJ) See Protocol Table ... SERVICE ADMINISTRATOR PRN SQ SEE PROTOCOL TABLE; Start 04/26/17 at 06:15; Stop 04/27/17 at 07:53; Status DC Dexamethasone Sodium Phosphate (Decadron Inj) 10 mg SERVICE ADMINISTRATOR PRN IV GIVE IN OR HOLDING Last administered on 04/26/17 06:25; Start 04/26/17 at 06:15; Stop 04/27/17 at 06:14; Status DC Povidone Iodine (Betadine 7.5% Scrub) 1 applic ONCE TOPICAL Last administered on 04/26/17 06:00; Start 04/26/17 at 06:15; Stop 04/29/17 at 06:14 Cefazolin Sodium/ Dextrose 50 ml @ 100 mls/hr SERVICE ADMINISTRATOR IV Last administered on 04/26/17 06:35; Start 04/26/17 at 06:15; Stop 04/27/17 at 07:53; Status DC Vancomycin HCl 1000 mg/Sodium Chloride 250 ml @ 250 mls/hr SERVICE ADMINISTRATOR IV Last administered on 04/26/17 06:35; Start 04/26/17 at 06:15; Stop 04/27/17 at 07 :53; Status DC Tranexamic Acid 900 mg/Sodium Chloride 109 ml @ 200 mls/hr ONCE IV Last administered on 04/26/17 07:11; Start 04/26/17 at 06:15; Stop 04/26/17 at 16 :00; Status DC Bupivacaine Liposome 20 ml/ Sodium Chloride 60 ml @ 120 mls/hr ONCE P-ARTICULR Last administered on 04/26/17 07:32; Start 04/26/17 at 06:15; Stop at 16:00; Status DC Gentamicin Sulfate (Gentamicin Inj) 240 mg STK-MED ONCE .ROUTE Last administered on 04/26/17 07:32; Start 04/26/17 at 06:10; Stop 04/26/17 at 06 :11; Status DC Fluoxetine HCl (PROzac) 10 mg DAILY PO Last administered on 04/28/17 08:12; Start 04/27/17 at 09:00 Lisinopril (Prinivil) 40 mg DAILY PO Last administered on 04/28/17 08:12; Start 04/27/17 at 09:00 Metformin HCl (Glucophage) 250 mg BIDPC PO Last administered on 04/28/17 08:12 ; Start 04/26/17 at 10:30 Sodium Chloride 1,000 ml @ 100 mls/hr Q10H IV Last administered on 04/27/17 00:23; Start 04/26/17 at 08:42 IV Flush (NS Flush) 2 ml UNSCH PRN IVF FLUSH AFTER USING IV ACCESS; Start at 08:45 IV Flush (NS Flush) 2 ml BID IVF Last administered on 04/28/17 08:14; Start 04/26/17 at 09:00 Cefazolin Sodium 1000 mg/Sodium Chloride 100 ml @ 200 mls/hr Q6H IV Last administered on 04/27/17 00:16; Start 04/26/17 at 12:00; Stop 04/27/17 at 00 :29; Status DC Miscellaneous Information (Post-op Orders (for Pharmacy)) STAT ONCE XX ; Start 04/26/17 at 08:45; Stop 04/26/17 at 10:14; Status DC Dexamethasone Sodium Phosphate (Decadron Inj) 10 mg ONCE ONCE IV Last administered on 04/27/17 08:06; Start 04/27/17 at 07:45; Stop 04/27/17 at 07 :46; Status DC Enoxaparin Sodium (Lovenox Inj) 40 mg Q24H SQ Last administered on 04/28/17 08 :11; Start 04/27/17 at 08:00; Stop 05/06/17 at 08:01 Acetaminophen/ Hydrocodone Bitart (Powderly 5-325 Mg) 1 tab Q4H PRN PO PAIN LESS THAN 5 ON SCALE Last administered on 04/28/17 05:12; Start 04/26/17 at 08:45 Acetaminophen/ Hydrocodone Bitart (Powderly 5-325 Mg) 2 tab Q4H PRN PO PAIN SCALE 5 TO 10; Start 04/26/17 at 08:45 Tranexamic Acid 903 mg/Sodium Chloride 109.03 ml @ 200 mls/ hr UNSCH IV Last administered on 04/26/17 10:27; Start 04/26/17 at 10:00; Stop 04/26/17 at 16 :00; Status DC Multivitamins/ Minerals Therapeutic (Theragran M Tab) 1 tab BID PO Last administered on 04/28/17 08:11; Start 04/27/17 at 21:00; Stop 06/26/17 at 20: 59 Ondansetron HCl (Zofran Inj) 4 mg Q6H PRN IVP NAUSEA OR VOMITING; Start at 08:45 Docusate Sodium (Colace) 100 mg BID PO Last administered on 04/28/17 08:11; Start 04/27/17 at 21:00 Al Hydrox/Mg Hydrox/Simethicone (Mag-Al Plus Susp Liq) 30 ml Q6H PRN PO INDIGESTION; Start 04/26/17 at 08:45 Zolpidem Tartrate (Ambien) 5 mg HS PRN PO SLEEP; Start 04/26/17 at 08:45 Bisacodyl (Dulcolax Supp) 10 mg DAILY PRN RECTAL SEVERE CONSITIPATION; Start 04/26/17 at 08:45 Magnesium Hydroxide (Milk Of Magnesia Liq) 30 ml DAILY PRN PO MILD - MODERATE CONSTIPATION Last administered on 04/28/17 08:12; Start 04/26/17 at 08:45 Naloxone HCl (Narcan Inj) 0.4 mg UNSCH PRN IV PUSH RESPIRATORY RATE LESS THAN 10; Start 04/26/17 at 08:45 Diphenhydramine HCl (Benadryl Inj) 25 mg Q6H PRN IV PUSH ITCHING; Start at 08:45 Morphine Sulfate (Morphine Inj) 2 mg Q3H PRN IV PUSH pain greater than 5; Start 04/26/17 at 08:45 Clonidine (Catapres) 0.1 mg Q4H PRN PO SBP>160, DBP>90 Last administered on 04:35; Start 04/26/17 at 09:15 Dextrose (D50w (Vial) Inj) 50 ml UNSCH PRN IV PUSH HYPOGLYCEMIA-SEE COMMENTS; Start 04/26/17 at 09:15 Glucagon (Glucagon Inj) 1 mg UNSCH PRN OTHER HYPOGLYCEMIA-SEE COMMENTS; Start 04/26/17 at 09:15 Insulin Aspart (NovoLOG SUPPLEMENTAL SCALE) 1 ACHS SLIDING SCALE SQ Last administered on 04/26/17 19:54; Start 04/26/17 at 12:00 Morphine Sulfate (*morphine INJ PERIprocedure ONLY) 8 mg STK-MED ONCE .ROUTE Last administered on 04/26/17 09:18; Start 04/26/17 at 09:17; Stop 04/26/17 at 09:18; Status DC Morphine Sulfate (*morphine INJ PERIprocedure ONLY) 8 mg STK-MED ONCE .ROUTE Last administered on 04/26/17 09:47; Start 04/26/17 at 09:45; Stop 04/26/17 at 09:46; Status DC Miscellaneous (Pill Splitter) 1 ea UNSCH PRN OTHER SEE LABEL COMMENTS; Start 04/26/17 at 10:30 Miscellaneous Information ALL NURSING DEPARTME... UNSCH PRN .XX SEE LABEL COMMENTS; Start 04/26/17 at 09:11; Stop 04/27/17 at 09:10; Status DC A/P Problem List: (1) GERD (gastroesophageal reflux disease) ICD Code: K21.9 - Gastro-esophageal reflux disease without esophagitis (2) Status post total hip replacement, right ICD Code: Z96.641 - Presence of right artificial hip joint (3) Osteoarthritis of right hip ICD Code: M16.11 - Unilateral primary osteoarthritis, right hip (4) Anxiety and depression ICD Code: F41.8 - Other specified anxiety disorders (5) Hypertension ICD Code: I10 - Essential (primary) hypertension (6) Diabetes mellitus ICD Code: E11.9 - Type 2 diabetes mellitus without complications (7) Osteoarthritis of left hip ICD Code: M16.12 - Unilateral primary osteoarthritis, left hip Status: Acute Assessment and Plan 71-year-old man with Severe right hip OA Status post right total hip arthroplasty Management per orthopedic surgery Pain management accordingly PT to treat and eval Lovenox for DVT prophylaxis Diabetes type 2 Continue metformin, insulin sliding scale. Mildly elevated LFTs Patient denies any alcohol use. Most likely secondary to fatty liver disease. Since patient is asymptomatic this can be worked up as outpatient. Patient stated that he understands. Hypertension, controlled Continue with lisinopril 40 mg daily Other chronic medical conditions Continue outpatient medications DVT prophylaxis: Lovenox Discharge Planning Patient is medically clear for discharge. Problem Qualifiers (1) Osteoarthritis of right hip: Qualified Codes: M16.11 - Unilateral primary osteoarthritis, right hip Yolie Corral MD Apr 28, 2017 09:07
[2017-04-28] MEDS: TAMSULOSIN HCL 0.4 MG CAP PO SCH (10:53)
[2017-04-28 12:00] VITALS: BP 123/67; PULSE 68; RESP 16; TEMP 97.5; O2SAT 98
[2017-04-28 12:06] LABS: INDIRECT BILIRUBIN 0.5 MG/DL (0.0-0.8); TOTAL BILIRUBIN ADULT 0.6 MG/DL (0.2-1.0)
[2017-04-28 12:30] LABS: BLOOD, URINE TRACE (NEG); COMMENT (UR) CULT NOT INDICATED; CULTURE IF INDICATED CULT NOT INDICATED; GLUCOSE,URINE NEG (NEG); KETONE, URINE NEG (NEG); MUCUS URINE FEW /lpf (OCC); NITRITE,URINE NEG (NEG); PH, URINE 6.5 (5.0-8.5); SQUAMOUS EPITHELIAL CELL URINE <1 /hpf (0-5); URINE COLOR YELLOW (YELLW/STRAW)
[2017-04-28 16:00] VITALS: BP 122/70; PULSE 74; RESP 16; TEMP 98.5; O2SAT 97
--- NOTE | 2017-04-28 16:46 | PD.ORT.PN ---
Subjective Post Op Day #: 2 Subjective Remarks Patient is resting in bed with mild to moderate right hip pain. Patient states the Valente cath was removed and that he is urinating in small amounts. Objective Vitals Vital Signs Date Time Temp Pulse Resp B/P (MAP) Pulse Ox O2 Delivery O2 Flow Rate FiO2 04/28/17 12:00 97.5 68 16 123/67 (85) 98 04/28/17 08:00 97.7 66 16 119/76 (90) 95 04/28/17 00:13 96.8 75 18 117/73 (88) 98 04/27/17 20:46 97.8 84 18 121/73 (89) 99 I/O 04/27/17 04/27/17 04/27/17 04/28/17 04/28/17 04/28/17 07:00 15:00 23:00 07:00 15:00 23:00 Intake Total 1840 ml 360 ml 360 ml Output Total 1800 ml 1300 ml 300 ml 700 ml Balance 40 ml -1300 ml 60 ml -340 ml Intake Oral 240 ml 360 ml 360 ml IV Total 1600 ml Output Urine Total 1800 ml 1300 ml 300 ml 700 ml # Bowel Movements 0 0 1 Result Diagram: 04/28/17 0423 04/27/17 0535 Procedures Right ELPIDIO Objective Remarks The patient's dressing is C/D/I. EHL/TA/G intact. 2+ pedal pulse. Calf is soft and nontender. Mild ecchymosis to the right hip. + SILT. UA negative for infection Assessment & Plan Ortho Post Op Day #: 2 Problem List: Assessment and Plan POD #2: Right ELPIDIO 1. WBAT RLE 2. Lovenox followed by ASA for DVT prophylaxis 3. Ice to the right hip PRN 4. Plan is for [facility] Monday if continuing to void independently. 5. Patient will f/u with Dr. Zamarripa or ALEXA Damian as previously scheduled. 6. UA negative for infection. Valente removed and patient currently voiding. Patient placed on Flomax. No urology consult needed. Kris Soni Apr 28, 2017 16:46
[2017-04-28 19:00] VITALS: BP 95/64; PULSE 83; RESP 17; TEMP 98.1; O2SAT 95
[2017-04-29] VITALS: BP 109/62; PULSE 71; RESP 16; TEMP 98.1; O2SAT 97
[2017-04-29] MEDS: ACETAMINOPHEN/HYDROcodone 325 MG/5 MG TAB PO PRN ×2 (03:53→11:25)
[2017-04-29 04:00] VITALS: BP 116/71; PULSE 67; RESP 15; TEMP 98.1; O2SAT 96
[2017-04-29 06:23] LABS: HEMATOCRIT 31.8 % (39.0-51.0); MEAN CELL VOLUME 86.3 FL (80.0-100.0); MEAN CORPUSCULAR HEMOGLOBIN 28.5 PG (27.0-34.0); MEAN CORPUSCULAR HGB CONC 33.1 % (32.0-36.0); PLATELET COUNT 193 TH/MM3 (150-450); RED BLOOD COUNT 3.68 MIL/MM3 (4.50-5.90); RED CELL DISTRIBUTION WIDTH 14.4 % (11.6-17.2); REVIEW FLAG FINAL
--- NOTE | 2017-04-29 07:58 | PD.ORT.PN ---
Subjective Post Op Day #: 3 Subjective Remarks hip doing ok. still urinary frequency. Objective Vitals Vital Signs Date Time Temp Pulse Resp B/P (MAP) Pulse Ox O2 Delivery O2 Flow Rate FiO2 04/29/17 04:00 98.1 67 15 116/71 (86) 96 04/29/17 00:00 98.1 71 16 109/62 (78) 97 04/28/17 19:12 Room Air 04/28/17 19:00 98.1 83 17 95/64 (74) 95 04/28/17 16:00 98.5 74 16 122/70 (87) 97 04/28/17 12:00 97.5 68 16 123/67 (85) 98 04/28/17 08:00 97.7 66 16 119/76 (90) 95 I/O 04/28/17 04/28/17 04/28/17 04/29/17 04/29/17 04/29/17 07:00 15:00 23:00 07:00 15:00 23:00 Intake Total 360 ml 480 ml 480 ml Output Total 700 ml Balance -340 ml 480 ml 480 ml Intake Oral 360 ml 480 ml 480 ml Output Urine Total 700 ml # Voids 3 2 # Bowel Movements 0 1 0 0 Result Diagram: 04/29/17 0526 04/27/17 0535 Procedures Right ELPIDIO Objective Remarks The patient's dressing is C/D/I. EHL/TA/G intact. 2+ pedal pulse. Calf is soft and nontender. Mild ecchymosis to the right hip. + SILT. UA negative for infection Assessment & Plan Ortho Post Op Day #: 3 Problem List: Assessment and Plan POD #3: Right ELPIDIO 1. WBAT RLE 2. Lovenox followed by ASA for DVT prophylaxis 3. Ice to the right hip PRN 4. Plan [facility] if continuing to void independently. 5. Patient will f/u with Dr. Zamarripa or ALEXA Damian as previously scheduled. 6. UA negative for infection. Valente removed and patient currently voiding. Patient placed on Flomax. No urology consult needed. Johnathan Delgado Apr 29, 2017 07:58
[2017-04-29 08:00] VITALS: BP 123/71; PULSE 64; RESP 18; TEMP 97.3; O2SAT 99
[2017-04-29] MEDS: INSULIN ASPART SUPPLEMENTAL SCALE SQ SCH ×2 (08:00→11:26)
[2017-04-29] MEDS: SODIUM CHLORIDE 0.9% FLUSH 5 ML FLUSH IVF SCH (09:00)
[2017-04-29] MEDS ORDERED: TAMS5CAP PO (09:03)
[2017-04-29] MEDS: ENOXAPARIN SODIUM 40 MG/0.4 ML SYRINGE SQ SCH (09:09)
[2017-04-29] MEDS: DOCUSATE SODIUM 100 MG CAP PO SCH (09:09)
[2017-04-29] MEDS: metFORMIN HCL 500 MG TAB PO SCH (09:09)
[2017-04-29] MEDS: FLUoxetine HCL 10 MG CAP PO SCH (09:09)
[2017-04-29] MEDS: MULTIVITAMINS/MINERALS THERAPEUTIC TAB PO SCH (09:10)
[2017-04-29] MEDS: LISINOPRIL 20 MG TAB PO SCH (09:10)
[2017-04-29] MEDS: TAMSULOSIN HCL 0.4 MG CAP PO SCH (09:10)
--- NOTE | 2017-05-01 19:05 | HHI.DS ---
Discharge Summary Admission Date Apr 26, 2017 at 05:45 Discharge Date: Apr 29, 2017 Admitting Diagnosis OA of the right hip Status post total hip replacement, right Diagnosis: (1) Osteoarthritis of right hip Diagnosis: Principal ICD Codes: M16.11 - Unilateral primary osteoarthritis, right hip (2) Status post total hip replacement, right Diagnosis: Principal ICD Codes: Z96.641 - Presence of right artificial hip joint Procedures Right ELPIDIO Brief History This is a 71 year old male patient with severe OA of the right hip CBC/BMP: 04/29/17 0526 04/27/17 0535 Significant Findings Laboratory Tests Test 04/29/17 05:26 Red Blood Count 3.68 MIL/MM3 (4.50-5.90) Hemoglobin 10.5 GM/DL (13.0-17.0) Hematocrit 31.8 % (39.0-51.0) PE at Discharge The patient's dressing is C/D/I. EHL/TA/G intact. 2+ pedal pulse. Calf is soft and nontender. Mild ecchymosis to the right hip. + SILT. UA negative for infection Hospital Course The patient was admitted to the hospital for severe OA of the right hip to have a right ELPIDIO. The patient's surgery went well without complication. The patient did have some urinary retention post op and required the insertion of a Valente cath. The patient did end up having his Valente removed and was placed on Flowmax. The patient was able to void and did not require a urology consult. The patient is WBAT. The patient was placed on Lovenox followed by ASA for DVT prophylaxis. The patient was discharged to [facility] rehab and will f/u in the office with Dr. Zamarripa or ALEXA Damian as previously scheduled. Pt Condition on Discharge: Stable Discharge Disposition: Discharge to SNF Discharge Instructions Diet Instructions: Diabetic Diet Activities You Can Perform: Weight Bearing as Martín Activities to Avoid: Strenuous Activity Follow up Referrals: Orthopedics with Federico Zamarripa MD New Medications: Aspirin (Ecotrin Regular Strength) 325 Mg Tabdr 325 MG PO DAILY for Prevent Blood Clot, #30 TAB 0 Refills Start Aspirin after Lovenox is completed. Commode 3-in-1 (Commode 3-in-1) 1 Mis Mis EA .ROUTE DIRECTED, #1 0 Refills Enoxaparin Inj (Enoxaparin Inj) 40 Mg/0.4 Ml Syr 40 MG SQ DAILY for Blood Clot Prevention, #10 SYRINGE 0 Refills Start Aspirin after Lovenox is completed. Hydrocodone-Acetaminophen ([place]) 5 Mg-325 Mg Tab 1-2 TAB PO Q4H PRN for PAIN, #60 TAB 0 Refills Walker with Front Wheels (Walker with Front Wheels) 1 Mis Mis EA .ROUTE DIRECTED, #1 0 Refills Tamsulosin (Flomax) 0.4 Mg Cap 0.4 MG PO DAILY for urinary rentention, #15 CAP 0 Refills Continued Medications: Cyanocobalamin ER (Vitamin B-12 ER) 2,000 Mcg Tab 2500 MCG PO DAILY for Nutritional Supplement, #1 BOTTLE 0 Refills Fluoxetine (Fluoxetine) 10 Mg Tab 10 MG PO DAILY, #30 TAB 0 Refills Lisinopril (Lisinopril) 40 Mg Tab 40 MG PO DAILY for Blood Pressure Management, #30 TAB 0 Refills Metformin ER (Metformin ER) 500 Mg Marlin 500 MG PO DAILY for Blood Sugar Management, TAB 0 Refills With evening meal Multiple Vitamins W/ Minerals (Preservision Areds) 1 Tab 3 TAB PO DAILY for Nutritional Supplement, TAB 0 Refills Discontinued Medications: Aspirin (Aspirin) 325 Mg Tab 325 MG PO DAILY for Prevent Blood Clot, #30 TAB 0 Refills Start Aspirin after Lovenox is completed. Hydrocodone-Acetaminophen ([place]) 5-325 mg Tab 1-2 TAB PO Q4H PRN for PAIN, #60 TAB 0 Refills Kris Soni May 01, 2017 19:05
== END 2017-04-29 12:07 | DRG 470 ==
LOC: HSDI 05:45 → N06A 11:18
PROVIDERS: ADMIT Orthopaedic Surgery; ATTEND Orthopaedic Surgery
PROC: 0SR902A Replacement of Right Hip Joint with Metal on Polyethylene Synthetic Substitute, Uncemented, Open Approach (ICD-10-PCS; principal; 2017-04-26 06:47)
PROC: 0T9B70Z Drainage of Bladder with Drainage Device, Via Natural or Artificial Opening (ICD-10-PCS; 2017-04-27)
DX: M16.11 Unilateral primary osteoarthritis, right hip (principal); E11.9 Type 2 diabetes mellitus without complications; Z96.642 Presence of left artificial hip joint; I10 Essential (primary) hypertension; E78.5 Hyperlipidemia, unspecified; F41.9 Anxiety disorder, unspecified; K21.9 Gastro-esophageal reflux disease without esophagitis; F32.9 Major depressive disorder, single episode, unspecified; N40.0 Benign prostatic hyperplasia without lower urinary tract symptoms; R33.9 Retention of urine, unspecified; Z87.891 Personal history of nicotine dependence; Z79.84 Long term (current) use of oral hypoglycemic drugs
CPT/HCPCS: 73502; 76000; 80053; 80076; 81001; 82948; 83036; 83735; 84100; 84439; 84443; 85025; 85027; 86850; 86900; 86901; 94150; C1776; C9290; J0690; J1100; J1580; J1650; J1815; J2250; J2270; J2405; J3010; J3370; J7030; J7050; J7120